=== PATIENT | female | born 1930 | race Caucasian/White ===

== ENCOUNTER 2020-06-21 17:09 | Inpatient (IN) | payer MEDICARE, BC ==
[2020-06-21] MEDS ORDERED: Sodium Chloride 0.9% 10 ML Syringe FLUSH PRN ×2 (17:22→20:59)
--- NOTE | 2020-06-21 18:07 | EDM.PDOC ---
ED HPI GENERAL MEDICAL PROBLEM - General Chief Complaint: Respiratory Problem Stated Complaint: [facility] Time Seen by Provider: 06/21/20 17:21 Source of Information: Reports: Patient, RN Notes Reviewed - History of Present Illness INITIAL COMMENTS - FREE TEXT/NARRATIVE: Patient is an 89-year-old female who presents to the ED via [facility] for the evaluation of her shortness of breath. Patient resides at [facility] which is an assisted living. She notes that this has been going on for the past few days. She states she feels "crackles in her lungs ". Her temperature at [facility] was 100.6 however she is afebrile when she gets to the ER at 98.6 F. Patient's pulse is mildly elevated at 115, respiratory rate is elevated at 24, blood pressure at 150/74, O2 sats were 84% on room air. She does not wear oxygen at baseline. She did receive the COVID-19 vaccine 2 weeks ago, and notes that she gets tested for COVID-19 3 times a week and the last test was this morning, which was a state send out test. She is not having any chest pain, she is not complaining of any cough. She is not having any nausea/vomiting/diarrhea, or any other urinary issues like frequency or urgency. - Related Data Allergies Allergy/AdvReac Type Severity Reaction Status Date / Time atorvastatin calcium Allergy Muscle Verified 06/21/20 17:18 [From Lipitor] Aches ibuprofen Allergy Edema Verified 06/21/20 17:18 [From DayQuil Sinus Pressure/Pain] pseudoephedrine HCl Allergy Edema Verified 06/21/20 17:18 [From DayQuil Sinus Pressure/Pain] Home Meds: Home Meds Acetaminophen [Tylenol Extra Strength] 1,000 mg PO Q6HR PRN 04/01/15 [History] Aspirin 162 mg PO BID 04/01/15 [History] Calcium Carb/Vitamin D3/Vit K1 [Calcium + D Soft Chewable Tab] 600 mg PO DAILY 04/01/15 [History] Loratadine [Claritin] 10 mg PO DAILY 04/01/15 [History] Omeprazole [Prilosec] 20 mg PO DAILY 04/01/15 [History] Rosuvastatin [Crestor] 5 mg PO DAILY 04/01/15 [History] Ubidecarenone [Co Q-10] 50 mg PO DAILY 04/01/15 [History] carvediloL [Coreg] 12.5 mg PO BID 04/01/15 [History] Flunisolide 2 spray ELI Q12H 08/25/15 [History] Ascorbic Acid [Vitamin C] 500 mg PO DAILY 03/26/18 [History] Furosemide 40 mg PO DAILY 03/26/18 [History] Lactobacillus Acidophilus [Probiotic] 1 cap PO DAILY 03/26/18 [History] Multivitamin [Poly-Vitamin] 1 tab PO DAILY 03/26/18 [History] Sertraline [Zoloft] 75 mg PO DAILY 03/26/18 [History] allopurinoL [Zyloprim] 300 mg PO DAILY 03/26/18 [History] Calcium Carbonate [Tums] 1,000 mg PO ASDIRECTED PRN 06/21/20 [History] Cyanocobalamin (Vitamin B-12) [Vitamin B-12] 100 mcg PO DAILY 06/21/20 [History] Lutein/Minerals/Vit A,C & E [Ocuvite] 1 tab PO DAILY 06/21/20 [History] Neomycin/Bacitracin/Polymyxinb [Antibiotic Ointment] 1 applic TOP ASDIRECTED PRN 06/21/20 [History] Past Medical History HEENT History: Reports: Other (See Below) Other HEENT History: glasses, hearing aids, dentures. seasonal allergies, R eye retinal hemorrhage Cardiovascular History: Reports: Heart Failure, High Cholesterol, [place], Pacemaker, Other (See Below) Other Cardiovascular History: arterioslerotic cardiovascular disease, CAD, heart failure with diastolic dysfuntion, PVD, Pacemaker with AICD, Cardiac Cath 2007, CABG 2008, Aortic dissection repair 2008 Respiratory History: Reports: Other (See Below) Other Respiratory History: history of L pleural effusion Gastrointestinal History: Reports: GERD Genitourinary History: Reports: Other (See Below) Other Genitourinary History: chronic kidney disease stage II Musculoskeletal History: Reports: Other (See Below) Other Musculoskeletal History: degenerative joint disease, carpal tunnel syndrome Neurological History: Reports: Other (See Below) Other Neuro History: romero's palsy Dermatologic History: Reports: Other (See Below) Other Dermatologic History: hives, eczema - Past Surgical History Musculoskeletal Surgical History: Reports: Other (See Below) Other Musculoskeletal Surgeries/Procedures:: back surgery L3, L4 2007 Social & Family History - Family History Cardiac: Reports: [place] Musculoskeletal: Reports: Arthritis - Tobacco Use Tobacco Use Status *Q: Former Tobacco User Used Tobacco, but Quit: Yes Month/Year Tobacco Last Used: many years ago - Recreational Drug Use Recreational Drug Use: No ED ROS GENERAL - Review of Systems Review Of Systems: Comprehensive ROS is negative, except as noted in HPI. ED EXAM, GENERAL - Physical Exam Exam: See Below Exam Limited By: No Limitations General Appearance: Alert, WD/WN, No Apparent Distress (increased respiratory rate, but not in distress) Respiratory/Chest: No Respiratory Distress, Normal Breath Sounds, Decreased Breath Sounds (bilaterally) Cardiovascular: Normal Peripheral Pulses, Regular Rate, Rhythm, No Edema Extremities: Normal Inspection, Normal Capillary Refill Neurological: Alert, Oriented, Normal Cognition, No Motor/Sensory Deficits Psychiatric: Normal Affect, Normal Mood Skin Exam: Warm, Dry, Intact, Normal Color, No Rash #1 Interpretation EKG Date: 06/21/20 Time: 17:36 Rhythm: NSR Rate (Beats/Min): 108 [place]: LAD-Left [place] Deviation P-Wave: Present QRS: Normal ST-T: Normal QT: Normal Comparison: NA - No Prior EKG EKG Interpretation Comments: No ST abnormalities reviewed by myself and Dr. Fitch Course - Vital Signs Last Recorded V/S: Last Vital Signs Temp 98.6 F 06/21/20 17:13 Pulse 115 H 06/21/20 17:13 Resp 24 H 06/21/20 17:13 BP 150/79 H 06/21/20 17:13 Pulse Ox 84 L 06/21/20 17:13 - Orders/Labs/Meds Orders: Active Orders 24 hr Category Date Time Status EKG Documentation Completion [RC] STAT Care 06/21/20 17:21 Active Oxygen Therapy, ED [RC] ASDIRECTED Care 06/21/20 19:22 Ordered Peripheral IV Care [RC] . DIRECTED Care 06/21/20 17:22 Active CULTURE BLOOD [BC] Stat Lab 06/21/20 19:03 Ordered CULTURE BLOOD [BC] Stat Lab 06/21/20 19:03 Ordered CULTURE URINE [RM] Routine Lab 06/21/20 19:07 Ordered Sodium Chloride 0.9% [Saline Flush] Med 06/21/20 17:22 Active 10 ml FLUSH ASDIRECTED PRN cefTRIAXone [Rocephin] 2 gm Med 06/21/20 19:22 Ordered Sodium Chloride 0.9% [Normal Saline] 100 ml IV ONETIME Blood Culture x2 Reflex Set [OM.PC] Stat Oth 06/21/20 19:03 Ordered Peripheral IV Insertion Adult [OM.PC] Routine Oth 06/21/20 17:22 Ordered Medication Orders Sodium Chloride (Saline Flush) 10 ml FLUSH ASDIRECTED PRN PRN Reason: Keep Vein Open Last Admin: 06/21/20 18:11 Dose: 10 ml Documented by: DEONTE Labs: Laboratory Tests 06/21/20 06/21/20 06/21/20 Range/Units 17:26 17:40 17:40 WBC 14.38 H (3.98-10.04) K/mm3 RBC 3.46 L (3.98-5.22) M/mm3 Hgb 10.9 L D (11.2-15.7) gm/dl Hct 34.3 (34.1-44.9) % MCV 99.1 H (79.4-94.8) fl MCH 31.5 (25.6-32.2) pg MCHC 31.8 L (32.2-35.5) g/dl RDW Std Deviation 46.1 (36.4-46.3) fL Plt Count 250 (182-369) K/mm3 MPV 9.5 (9.4-12.3) fl Neutrophils % (Manual) 81 H (40-60) % Band Neutrophils % 0 (0-10) % Lymphocytes % (Manual) 8 L (20-40) % Atypical Lymphs % 0 % Monocytes % (Manual) 7 (2-10) % Eosinophils % (Manual) 4 (0.7-5.8) % Basophils % (Manual) 0 L (0.1-1.2) Platelet Estimate Adequate Anisocytosis 1+ slight RBC Morph Comment Abnormal PT (9.7-12.0) SECONDS INR APTT (21.7-31.4) SECONDS D-Dimer, Quantitative (0.19-0.50) mg/L Puncture Site ABG pH (7.35-7.45) ABG pCO2 (35.0-45.0) mmHg ABG pO2 (80.0-100.0) mmHg ABG HCO3 (22.0-26.0) meq/L ABG O2 Saturation (96.0-97.0) % ABG Base Excess (-2-2.0) Hal Test A-a Gradient mmHg O2 Delivery Device FiO2 (21.00-100.00) % Sodium (136-145) mEq/L Potassium (3.5-5.1) mEq/L Chloride (98-107) mEq/L Carbon Dioxide (21-32) mEq/L Anion Gap (5-15) BUN (7-18) mg/dL Creatinine (0.55-1.02) mg/dL Est Cr Clr Drug Dosing mL/min Estimated GFR (MDRD) (>60) mL/min BUN/Creatinine Ratio (14-18) Glucose (83-115) mg/dL Lactic Acid (0.4-2.0) mmol/L Calcium (8.5-10.1) mg/dL Magnesium (1.8-2.4) mg/dl Ferritin (8-252) ng/ml Total Bilirubin (0.2-1.0) mg/dL AST (15-37) U/L ALT (14-59) U/L Alkaline Phosphatase (46-116) U/L Lactate Dehydrogenase (81-234) U/L Troponin I (0.00-0.056) ng/mL C-Reactive Protein 22.8 H* (<1.0) mg/dL NT-Pro-B Natriuret Pep (0-450) pg/mL Total Protein (6.4-8.2) g/dl Albumin (3.4-5.0) g/dl Globulin gm/dL Albumin/Globulin Ratio (1-2) Urine Color (Yellow) Urine Appearance (Clear) Urine pH (5.0-8.0) Ur Specific Ambler (1.005-1.030) Urine Protein (Negative) Urine Glucose (UA) (Negative) Urine Ketones (Negative) Urine Occult Blood (Negative) Urine Nitrite (Negative) Urine Bilirubin (Negative) Urine Urobilinogen (0.2-1.0) Ur Leukocyte Esterase (Negative) Urine RBC (0-5) /hpf Urine WBC (0-5) /hpf Ur Squamous Epith Cells (0-5) /hpf Amorphous Sediment (NOT SEEN) /hpf Urine Bacteria (FEW) /hpf Urine Mucus (FEW) /hpf Influenza Type A RNA Negative (NEGATIVE) Influenza Type B RNA Negative (NEGATIVE) SARS-CoV-2 RNA (JEAN-PIERRE) Negative (NEGATIVE) 06/21/20 06/21/20 06/21/20 Range/Units 17:40 17:40 17:40 WBC (3.98-10.04) K/mm3 RBC (3.98-5.22) M/mm3 Hgb (11.2-15.7) gm/dl Hct (34.1-44.9) % MCV (79.4-94.8) fl MCH (25.6-32.2) pg MCHC (32.2-35.5) g/dl RDW Std Deviation (36.4-46.3) fL Plt Count (182-369) K/mm3 MPV (9.4-12.3) fl Neutrophils % (Manual) (40-60) % Band Neutrophils % (0-10) % Lymphocytes % (Manual) (20-40) % Atypical Lymphs % % Monocytes % (Manual) (2-10) % Eosinophils % (Manual) (0.7-5.8) % Basophils % (Manual) (0.1-1.2) Platelet Estimate Anisocytosis RBC Morph Comment PT 11.0 (9.7-12.0) SECONDS INR 1.03 APTT 29.9 (21.7-31.4) SECONDS D-Dimer, Quantitative 1.25 H (0.19-0.50) mg/L Puncture Site ABG pH (7.35-7.45) ABG pCO2 (35.0-45.0) mmHg ABG pO2 (80.0-100.0) mmHg ABG HCO3 (22.0-26.0) meq/L ABG O2 Saturation (96.0-97.0) % ABG Base Excess (-2-2.0) Hal Test A-a Gradient mmHg O2 Delivery Device FiO2 (21.00-100.00) % Sodium 140 (136-145) mEq/L Potassium 4.5 (3.5-5.1) mEq/L Chloride 104 (98-107) mEq/L Carbon Dioxide 21 (21-32) mEq/L Anion Gap 19.5 H (5-15) BUN 28 H (7-18) mg/dL Creatinine 1.5 H (0.55-1.02) mg/dL Est Cr Clr Drug Dosing 20.90 mL/min Estimated GFR (MDRD) 33 (>60) mL/min BUN/Creatinine Ratio 18.7 H (14-18) Glucose 117 H (83-115) mg/dL Lactic Acid (0.4-2.0) mmol/L Calcium 9.1 (8.5-10.1) mg/dL Magnesium 2.2 (1.8-2.4) mg/dl Ferritin (8-252) ng/ml Total Bilirubin 0.5 (0.2-1.0) mg/dL AST 20 (15-37) U/L ALT 21 (14-59) U/L Alkaline Phosphatase 121 H (46-116) U/L Lactate Dehydrogenase 180 (81-234) U/L Troponin I 0.044 (0.00-0.056) ng/mL C-Reactive Protein (<1.0) mg/dL NT-Pro-B Natriuret Pep 6980 H (0-450) pg/mL Total Protein 7.3 (6.4-8.2) g/dl Albumin 3.2 L (3.4-5.0) g/dl Globulin 4.1 gm/dL Albumin/Globulin Ratio 0.8 L (1-2) Urine Color (Yellow) Urine Appearance (Clear) Urine pH (5.0-8.0) Ur Specific Ambler (1.005-1.030) Urine Protein (Negative) Urine Glucose (UA) (Negative) Urine Ketones (Negative) Urine Occult Blood (Negative) Urine Nitrite (Negative) Urine Bilirubin (Negative) Urine Urobilinogen (0.2-1.0) Ur Leukocyte Esterase (Negative) Urine RBC (0-5) /hpf Urine WBC (0-5) /hpf Ur Squamous Epith Cells (0-5) /hpf Amorphous Sediment (NOT SEEN) /hpf Urine Bacteria (FEW) /hpf Urine Mucus (FEW) /hpf Influenza Type A RNA (NEGATIVE) Influenza Type B RNA (NEGATIVE) SARS-CoV-2 RNA (JEAN-PIERRE) (NEGATIVE) 06/21/20 06/21/20 06/21/20 Range/Units 17:40 17:40 17:51 WBC (3.98-10.04) K/mm3 RBC (3.98-5.22) M/mm3 Hgb (11.2-15.7) gm/dl Hct (34.1-44.9) % MCV (79.4-94.8) fl MCH (25.6-32.2) pg MCHC (32.2-35.5) g/dl RDW Std Deviation (36.4-46.3) fL Plt Count (182-369) K/mm3 MPV (9.4-12.3) fl Neutrophils % (Manual) (40-60) % Band Neutrophils % (0-10) % Lymphocytes % (Manual) (20-40) % Atypical Lymphs % % Monocytes % (Manual) (2-10) % Eosinophils % (Manual) (0.7-5.8) % Basophils % (Manual) (0.1-1.2) Platelet Estimate Anisocytosis RBC Morph Comment PT (9.7-12.0) SECONDS INR APTT (21.7-31.4) SECONDS D-Dimer, Quantitative (0.19-0.50) mg/L Puncture Site Lt radial ABG pH 7.47 H (7.35-7.45) ABG pCO2 24.0 L (35.0-45.0) mmHg ABG pO2 47.0 L (80.0-100.0) mmHg ABG HCO3 17.3 L (22.0-26.0) meq/L ABG O2 Saturation 84.8 L (96.0-97.0) % ABG Base Excess -4.7 L (-2-2.0) Hal Test Positive A-a Gradient 73 mmHg O2 Delivery Device Room air FiO2 21.00 (21.00-100.00) % Sodium (136-145) mEq/L Potassium (3.5-5.1) mEq/L Chloride (98-107) mEq/L Carbon Dioxide (21-32) mEq/L Anion Gap (5-15) BUN (7-18) mg/dL Creatinine (0.55-1.02) mg/dL Est Cr Clr Drug Dosing mL/min Estimated GFR (MDRD) (>60) mL/min BUN/Creatinine Ratio (14-18) Glucose (83-115) mg/dL Lactic Acid 1.0 (0.4-2.0) mmol/L Calcium (8.5-10.1) mg/dL Magnesium (1.8-2.4) mg/dl Ferritin 260 H (8-252) ng/ml Total Bilirubin (0.2-1.0) mg/dL AST (15-37) U/L ALT (14-59) U/L Alkaline Phosphatase (46-116) U/L Lactate Dehydrogenase (81-234) U/L Troponin I (0.00-0.056) ng/mL C-Reactive Protein (<1.0) mg/dL NT-Pro-B Natriuret Pep (0-450) pg/mL Total Protein (6.4-8.2) g/dl Albumin (3.4-5.0) g/dl Globulin gm/dL Albumin/Globulin Ratio (1-2) Urine Color (Yellow) Urine Appearance (Clear) Urine pH (5.0-8.0) Ur Specific Ambler (1.005-1.030) Urine Protein (Negative) Urine Glucose (UA) (Negative) Urine Ketones (Negative) Urine Occult Blood (Negative) Urine Nitrite (Negative) Urine Bilirubin (Negative) Urine Urobilinogen (0.2-1.0) Ur Leukocyte Esterase (Negative) Urine RBC (0-5) /hpf Urine WBC (0-5) /hpf Ur Squamous Epith Cells (0-5) /hpf Amorphous Sediment (NOT SEEN) /hpf Urine Bacteria (FEW) /hpf Urine Mucus (FEW) /hpf Influenza Type A RNA (NEGATIVE) Influenza Type B RNA (NEGATIVE) SARS-CoV-2 RNA (JEAN-PIERRE) (NEGATIVE) 06/21/20 Range/Units 17:55 WBC (3.98-10.04) K/mm3 RBC (3.98-5.22) M/mm3 Hgb (11.2-15.7) gm/dl Hct (34.1-44.9) % MCV (79.4-94.8) fl MCH (25.6-32.2) pg MCHC (32.2-35.5) g/dl RDW Std Deviation (36.4-46.3) fL Plt Count (182-369) K/mm3 MPV (9.4-12.3) fl Neutrophils % (Manual) (40-60) % Band Neutrophils % (0-10) % Lymphocytes % (Manual) (20-40) % Atypical Lymphs % % Monocytes % (Manual) (2-10) % Eosinophils % (Manual) (0.7-5.8) % Basophils % (Manual) (0.1-1.2) Platelet Estimate Anisocytosis RBC Morph Comment PT (9.7-12.0) SECONDS INR APTT (21.7-31.4) SECONDS D-Dimer, Quantitative (0.19-0.50) mg/L Puncture Site ABG pH (7.35-7.45) ABG pCO2 (35.0-45.0) mmHg ABG pO2 (80.0-100.0) mmHg ABG HCO3 (22.0-26.0) meq/L ABG O2 Saturation (96.0-97.0) % ABG Base Excess (-2-2.0) Hal Test A-a Gradient mmHg O2 Delivery Device FiO2 (21.00-100.00) % Sodium (136-145) mEq/L Potassium (3.5-5.1) mEq/L Chloride (98-107) mEq/L Carbon Dioxide (21-32) mEq/L Anion Gap (5-15) BUN (7-18) mg/dL Creatinine (0.55-1.02) mg/dL Est Cr Clr Drug Dosing mL/min Estimated GFR (MDRD) (>60) mL/min BUN/Creatinine Ratio (14-18) Glucose (83-115) mg/dL Lactic Acid (0.4-2.0) mmol/L Calcium (8.5-10.1) mg/dL Magnesium (1.8-2.4) mg/dl Ferritin (8-252) ng/ml Total Bilirubin (0.2-1.0) mg/dL AST (15-37) U/L ALT (14-59) U/L Alkaline Phosphatase (46-116) U/L Lactate Dehydrogenase (81-234) U/L Troponin I (0.00-0.056) ng/mL C-Reactive Protein (<1.0) mg/dL NT-Pro-B Natriuret Pep (0-450) pg/mL Total Protein (6.4-8.2) g/dl Albumin (3.4-5.0) g/dl Globulin gm/dL Albumin/Globulin Ratio (1-2) Urine Color Yellow (Yellow) Urine Appearance Slt cloudy H (Clear) Urine pH 6.0 (5.0-8.0) Ur Specific Ambler 1.020 (1.005-1.030) Urine Protein 2+ H (Negative) Urine Glucose (UA) Negative (Negative) Urine Ketones Trace H (Negative) Urine Occult Blood 1+ H (Negative) Urine Nitrite Positive H (Negative) Urine Bilirubin Negative (Negative) Urine Urobilinogen 0.2 (0.2-1.0) Ur Leukocyte Esterase 2+ H (Negative) Urine RBC 10-20 H (0-5) /hpf Urine WBC 50-75 H (0-5) /hpf Ur Squamous Epith Cells 5-10 H (0-5) /hpf Amorphous Sediment Rare H (NOT SEEN) /hpf Urine Bacteria Many H (FEW) /hpf Urine Mucus Not seen (FEW) /hpf Influenza Type A RNA (NEGATIVE) Influenza Type B RNA (NEGATIVE) SARS-CoV-2 RNA (JEAN-PIERRE) (NEGATIVE) Meds: Medications Generic Name Dose Route Start Last Admin Trade Name Freq PRN Reason Stop Dose Admin Sodium Chloride 10 ml 06/21/20 17:22 06/21/20 18:11 Saline Flush FLUSH 10 ml ASDIRECTED PRN Administration Keep Vein Open Discontinued Medications Generic Name Dose Route Start Last Admin Trade Name Freq PRN Reason Stop Dose Admin Furosemide 40 mg 06/21/20 19:08 Lasix IVPUSH 06/21/20 19:09 NOW ONE - Re-Assessments/Exams Free Text/Narrative Re-Assessment/Exam: 06/21/20 18:25 Patient presents to the ED for her ongoing shortness of breath. Multitude of labs will be done, along with chest x-ray, EKG and Covid swab for evaluation. Chest x-ray was done and read as possible appearance of CHF with interstitial edema. 06/21/20 19:20 The patient's laboratory evaluation is done, white cell count is elevated at 14.3, with 81% neutrophils and no bands. D-dimer is elevated at 1.25, which is likely due to her acute exacerbation of CHF and her ongoing infection. Her room air PO2 was 47, but her pH was 7.47 and she is not in any sort of respiratory failure. The patient's anion gap elevated at 19.5, creatinine 1.5 and GFR low at 33. Ferritin elevated at 260, troponin is within normal limits but shows 0.044. LDH within normal limits at 180. CRP elevated at 22.8, BNP is markedly elevated at 6980. Patient's Covid screen and influenza screen were negative. The patient's urine is also grossly positive for UTI. Laboratory is in there to get blood cultures, we will give 2 g Rocephin after this, and 40 mg Lasix for ongoing management and admit to the hospital, Dr. Mcarthur did graciously accept this patient for admission. Departure - Departure Time of Disposition: 19:21 Disposition: Admitted As Inpatient 68 Condition: Fair Clinical Impression: Acute CHF (congestive heart failure) Qualifiers: Heart failure type: unspecified Qualified Code(s): I50.9 - Heart failure, unspecified UTI (urinary tract infection) Qualifiers: Urinary tract infection type: acute cystitis Hematuria presence: with hematuria Qualified Code(s): N30.01 - Acute cystitis with hematuria - Discharge Information *PRESCRIPTION DRUG MONITORING PROGRAM REVIEWED*: No *COPY OF PRESCRIPTION DRUG MONITORING REPORT IN PATIENT GERMAINE: No Forms: ED Department Discharge Sepsis Event Note (ED) - Evaluation Sepsis Screening Result: No Definite Risk - Focused Exam Vital Signs: Vital Signs Temp Pulse Resp BP Pulse Ox 06/21/20 17:13 98.6 F 115 H 24 H 150/79 H 84 L - My Orders Last 24 Hours: My Active Orders 06/21/20 17:21 EKG Documentation Completion [RC] STAT 06/21/20 17:22 Peripheral IV Care [RC] . DIRECTED Sodium Chloride 0.9% [Saline Flush] 10 ml FLUSH ASDIRECTED PRN Peripheral IV Insertion Adult [OM.PC] Routine 06/21/20 19:03 CULTURE BLOOD [BC] Stat CULTURE BLOOD [BC] Stat Blood Culture x2 Reflex Set [OM.PC] Stat 06/21/20 19:07 CULTURE URINE [RM] Routine 06/21/20 19:22 Oxygen Therapy, ED [RC] ASDIRECTED cefTRIAXone [Rocephin] 2 gm Sodium Chloride 0.9% [Normal Saline] 100 ml IV ONETIME - Assessment/Plan Last 24 Hours: My Active Orders 06/21/20 17:21 EKG Documentation Completion [RC] STAT 06/21/20 17:22 Peripheral IV Care [RC] . DIRECTED Sodium Chloride 0.9% [Saline Flush] 10 ml FLUSH ASDIRECTED PRN Peripheral IV Insertion Adult [OM.PC] Routine 06/21/20 19:03 CULTURE BLOOD [BC] Stat CULTURE BLOOD [BC] Stat Blood Culture x2 Reflex Set [OM.PC] Stat 06/21/20 19:07 CULTURE URINE [RM] Routine 06/21/20 19:22 Oxygen Therapy, ED [RC] ASDIRECTED cefTRIAXone [Rocephin] 2 gm Sodium Chloride 0.9% [Normal Saline] 100 ml IV ONETIME
[2020-06-21 18:13] LABS: CORONAVIRUS COVID-19 NAA NEGATIVE (NEGATIVE)
--- NOTE | 2020-06-21 18:17 | CR ---
Chest: Portable view of the chest was obtained. Comparison: Previous chest x-ray of 12/08/08. Heart is enlarged. Upper mediastinum is normal. Sternotomy is noted. AICD is present. Diffuse increased pulmonary vasculature is seen with mild José Miguel B-lines most likely representing interstitial edema. Impression: 1. Findings at the current time have the appearance of CHF with interstitial edema. Diagnostic code #3
[2020-06-21] MEDS ORDERED: Furosemide 40 MG/4 ML VIAL IVPUSH ONE (19:08)
[2020-06-21] MEDS ORDERED: cefTRIAXone 2 GM in Sodium Chloride 0.9% 100 ML IV ONE (19:22)
--- NOTE | 2020-06-21 19:56 | PCM.HP.2 ---
H&P History of Present Illness - General Date of Service: 06/21/20 Admit Problem/Dx: Admission Diagnosis/Problem Admission Diagnosis/Problem CHF, Congestive heart failure Source of Information: Patient, Old Records, Provider, RN Notes Reviewed History Limitations: Reports: No Limitations - History of Present Illness Initial Comments - Free Text/Narative: This is an 89 yo elderly white female with past medical hx/o past medical hx/o Impaired Vision/Hearing, PRADEEP, HTN, HLD, HF with Preserved EF, Hx/o NE, S/p Pacemaker Placement, CAD, GERD, CKD Stage 2-3, DJD, CTS, OA, Apodaca's Palsy, Eczema, Former Smoker and Depression who comes to us from [facility] from evaluation of 3-day hx/o shortness of breath. Her chief complaint is associated with subjective fever of 100.6F. She carries no hx/o COVID-19 infection. She states she gets tested 3 times a week. Her last test was this morning but it was a send out. She did receive her Moderna shot 1, 2 weeks ago. She denies having cough or heart palpitations. No GI complaints. She reports frequent urination. Her initial work up shows a CBC remarkable for WBC of 14.83, Hgb of 10.9, MCV of 99.1, MCHC of 31.8, and Neutrophils of 81%. Her coagulation study is significant for D-dimer of 1.25. Her ABG shows a pH of 7.47, pCO2 of 24, pO2 of 47, HCO3 of 17.3 and O2 sat of 84% on RA. Her chemistry is significant for AG of 19.5, BUN of 28, Cr of 1.5, BS of 117, Ferritin of 260, Alk Phos of 121, CRP of 22.8, proBNP of 6980, and Albumin of 3.2. Her UA is suggestive of UTI. Her rapid covid and influenza tests are both negative. Her chest x-ray shows interstitial edema. Patient is coming in for further treatment of acute congestive heart failure and UTI. Headache Pain Score (Numeric/FACES): 5 - Related Data Allergies/Adverse Reactions: Allergies Allergy/AdvReac Type Severity Reaction Status Date / Time ibuprofen Allergy Edema Verified 06/21/20 17:18 [From DayQuil Sinus Pressure/Pain] pseudoephedrine HCl Allergy Edema Verified 06/21/20 17:18 [From DayQuil Sinus Pressure/Pain] atorvastatin calcium AdvReac Muscle Verified 06/22/20 16:02 [From Lipitor] Aches Home Medications: Home Meds Acetaminophen [Tylenol Extra Strength] 1,000 mg PO Q6HR PRN 04/01/15 [History] Aspirin 81 mg PO BID 04/01/15 [History] Calcium Carb/Vitamin D3/Vit K1 [Calcium + D Soft Chewable Tab] 600 mg PO DAILY 04/01/15 [History] Loratadine [Claritin] 10 mg PO DAILY 04/01/15 [History] Omeprazole [Prilosec] 20 mg PO DAILY PRN 04/01/15 [History] Rosuvastatin [Crestor] 5 mg PO DAILY 04/01/15 [History] Ubidecarenone [Co Q-10] 50 mg PO DAILY 04/01/15 [History] carvediloL [Coreg] 12.5 mg PO BID 04/01/15 [History] Flunisolide 2 spray ELI Q12H 08/25/15 [History] Ascorbic Acid [Vitamin C] 500 mg PO DAILY 03/26/18 [History] Furosemide 40 mg PO DAILY 03/26/18 [History] Lactobacillus Acidophilus [Probiotic] 1 cap PO DAILY 03/26/18 [History] Multivitamin [Poly-Vitamin] 1 tab PO DAILY 03/26/18 [History] Sertraline [Zoloft] 75 mg PO DAILY 03/26/18 [History] allopurinoL [Zyloprim] 300 mg PO DAILY 03/26/18 [History] Calcium Carbonate [Tums] 1,000 mg PO ASDIRECTED PRN 06/21/20 [History] Cyanocobalamin (Vitamin B-12) [Vitamin B-12] 100 mcg PO DAILY 06/21/20 [History] Lutein/Minerals/Vit A,C & E [Ocuvite] 1 tab PO DAILY 06/21/20 [History] Neomycin/Bacitracin/Polymyxinb [Antibiotic Ointment] 1 applic TOP ASDIRECTED PRN 06/21/20 [History] Past Medical History HEENT History: Reports: Other (See Below) Other HEENT History: glasses, hearing aids, dentures. seasonal allergies, R eye retinal hemorrhage Cardiovascular History: Reports: Heart Failure, High Cholesterol, NE, Pacemaker, Other (See Below) Other Cardiovascular History: arterioslerotic cardiovascular disease, CAD, heart failure with diastolic dysfuntion, PVD, Pacemaker with AICD, Cardiac Cath 2007, CABG 2008, Aortic dissection repair 2008 Respiratory History: Reports: Other (See Below) Other Respiratory History: history of L pleural effusion Gastrointestinal History: Reports: GERD Genitourinary History: Reports: Other (See Below) Other Genitourinary History: chronic kidney disease stage II Musculoskeletal History: Reports: Other (See Below) Other Musculoskeletal History: degenerative joint disease, carpal tunnel syndrome Neurological History: Reports: Other (See Below) Other Neuro History: apodaca's palsy Dermatologic History: Reports: Other (See Below) Other Dermatologic History: hives, eczema - Past Surgical History Musculoskeletal Surgical History: Reports: Other (See Below) Other Musculoskeletal Surgeries/Procedures:: back surgery L3, L4 2007 Social & Family History - Family History Cardiac: Reports: NE Musculoskeletal: Reports: Arthritis - Tobacco Use Tobacco Use Status *Q: Former Tobacco User Used Tobacco, but Quit: Yes Month/Year Tobacco Last Used: many years ago - Recreational Drug Use Recreational Drug Use: No H&P Review of Systems - Review of Systems: Review Of Systems: See Below General: Denies: Fever, Chills, Fatigue HEENT: Reports: Other (left sided facial droop). Denies: Contact Lenses, Sore Throat Pulmonary: Reports: Shortness of Breath. Denies: Wheezing, Cough Cardiovascular: Denies: Chest Pain, Dyspnea on Exertion, Edema, Lightheadedness, Claudication Gastrointestinal: Denies: Abdominal Pain, Nausea, Vomiting Genitourinary: Reports: Frequency, Urgency, Other (nocturia) Musculoskeletal: Denies: Joint Pain Skin: Denies: Cyanosis, Bruising, Pruritis, Rash Psychiatric: Denies: Depression, Anxiety Neurological: Denies: Confusion, Syncope, Difficulty Walking, Weakness, Gait Disturbance Hematologic/Lymphatic: Reports: No Symptoms Immunologic: Reports: Environmental Allergy, Seasonal Allergy Exam - Exam Exam: See Below - Vital Signs Vital Signs: Last Vital Signs Temp 37.0 C 06/21/20 17:13 Pulse 115 H 06/21/20 17:13 Resp 24 H 06/21/20 17:13 BP 150/79 H 06/21/20 17:13 Pulse Ox 84 L 06/21/20 17:13 Weight: 61.235 kg - Exam Quality Assessment: Supplemental Oxygen General: Alert, Oriented, Cooperative HEENT: Conjunctiva Clear, EACs Clear, EOMI, Hearing Intact, Mucosa Moist & [place], Nares Patent, Normal Nasal Septum, Posterior Pharynx Clear, Pupils Equal, Pupils Reactive Neck: Supple, Trachea Midline, Full Range of Motion. No: JVD Lungs: Normal Respiratory Effort, Crackles Cardiovascular: Regular Rate, Regular Rhythm, Other (pacemaker on left anterior chest) GI/Abdominal Exam: Normal Bowel Sounds, Soft, Non-Tender, No Organomegaly, No Distention, No Abnormal Bruit (Female) Exam: Deferred Rectal (Female) Exam: Deferred Back Exam: Normal Inspection, Decreased Range of Motion Extremities: Normal Inspection, Normal Range of Motion, Non-Tender, No Pedal Edema, Normal Capillary Refill Peripheral Pulses: 2+: Dorsalis Pedis (L), Dorsalis Pedis (R) Skin: Warm, Dry, Intact Neuro Extensive - Mental Status: Oriented x3, Normal Cognition, Memory Intact Neuro Extensive - Motor, Sensory, Reflexes: CN II-XII Intact, Normal Gait Psychiatric: Alert, Normal Affect, Normal Mood - Patient Data Lab Results Last 24 hrs: Laboratory Results - last 24 hr 06/21/20 06/21/20 06/21/20 Range/Units 17:26 17:40 17:40 WBC 14.38 H (3.98-10.04) K/mm3 RBC 3.46 L (3.98-5.22) M/mm3 Hgb 10.9 L D (11.2-15.7) gm/dl Hct 34.3 (34.1-44.9) % MCV 99.1 H (79.4-94.8) fl MCH 31.5 (25.6-32.2) pg MCHC 31.8 L (32.2-35.5) g/dl RDW Std Deviation 46.1 (36.4-46.3) fL Plt Count 250 (182-369) K/mm3 MPV 9.5 (9.4-12.3) fl Neutrophils % (Manual) 81 H (40-60) % Band Neutrophils % 0 (0-10) % Lymphocytes % (Manual) 8 L (20-40) % Atypical Lymphs % 0 % Monocytes % (Manual) 7 (2-10) % Eosinophils % (Manual) 4 (0.7-5.8) % Basophils % (Manual) 0 L (0.1-1.2) Platelet Estimate Adequate Anisocytosis 1+ slight RBC Morph Comment Abnormal PT (9.7-12.0) SECONDS INR APTT (21.7-31.4) SECONDS D-Dimer, Quantitative (0.19-0.50) mg/L Puncture Site ABG pH (7.35-7.45) ABG pCO2 (35.0-45.0) mmHg ABG pO2 (80.0-100.0) mmHg ABG HCO3 (22.0-26.0) meq/L ABG O2 Saturation (96.0-97.0) % ABG Base Excess (-2-2.0) Hal Test A-a Gradient mmHg O2 Delivery Device FiO2 (21.00-100.00) % Sodium (136-145) mEq/L Potassium (3.5-5.1) mEq/L Chloride (98-107) mEq/L Carbon Dioxide (21-32) mEq/L Anion Gap (5-15) BUN (7-18) mg/dL Creatinine (0.55-1.02) mg/dL Est Cr Clr Drug Dosing mL/min Estimated GFR (MDRD) (>60) mL/min BUN/Creatinine Ratio (14-18) Glucose (83-115) mg/dL Lactic Acid (0.4-2.0) mmol/L Calcium (8.5-10.1) mg/dL Magnesium (1.8-2.4) mg/dl Ferritin (8-252) ng/ml Total Bilirubin (0.2-1.0) mg/dL AST (15-37) U/L ALT (14-59) U/L Alkaline Phosphatase (46-116) U/L Lactate Dehydrogenase (81-234) U/L Troponin I (0.00-0.056) ng/mL C-Reactive Protein 22.8 H* (<1.0) mg/dL NT-Pro-B Natriuret Pep (0-450) pg/mL Total Protein (6.4-8.2) g/dl Albumin (3.4-5.0) g/dl Globulin gm/dL Albumin/Globulin Ratio (1-2) Urine Color (Yellow) Urine Appearance (Clear) Urine pH (5.0-8.0) Ur Specific [place] (1.005-1.030) Urine Protein (Negative) Urine Glucose (UA) (Negative) Urine Ketones (Negative) Urine Occult Blood (Negative) Urine Nitrite (Negative) Urine Bilirubin (Negative) Urine Urobilinogen (0.2-1.0) Ur Leukocyte Esterase (Negative) Urine RBC (0-5) /hpf Urine WBC (0-5) /hpf Ur Squamous Epith Cells (0-5) /hpf Amorphous Sediment (NOT SEEN) /hpf Urine Bacteria (FEW) /hpf Urine Mucus (FEW) /hpf Influenza Type A RNA Negative (NEGATIVE) Influenza Type B RNA Negative (NEGATIVE) SARS-CoV-2 RNA (JEAN-PIERRE) Negative (NEGATIVE) 06/21/20 06/21/20 06/21/20 Range/Units 17:40 17:40 17:40 WBC (3.98-10.04) K/mm3 RBC (3.98-5.22) M/mm3 Hgb (11.2-15.7) gm/dl Hct (34.1-44.9) % MCV (79.4-94.8) fl MCH (25.6-32.2) pg MCHC (32.2-35.5) g/dl RDW Std Deviation (36.4-46.3) fL Plt Count (182-369) K/mm3 MPV (9.4-12.3) fl Neutrophils % (Manual) (40-60) % Band Neutrophils % (0-10) % Lymphocytes % (Manual) (20-40) % Atypical Lymphs % % Monocytes % (Manual) (2-10) % Eosinophils % (Manual) (0.7-5.8) % Basophils % (Manual) (0.1-1.2) Platelet Estimate Anisocytosis RBC Morph Comment PT 11.0 (9.7-12.0) SECONDS INR 1.03 APTT 29.9 (21.7-31.4) SECONDS D-Dimer, Quantitative 1.25 H (0.19-0.50) mg/L Puncture Site ABG pH (7.35-7.45) ABG pCO2 (35.0-45.0) mmHg ABG pO2 (80.0-100.0) mmHg ABG HCO3 (22.0-26.0) meq/L ABG O2 Saturation (96.0-97.0) % ABG Base Excess (-2-2.0) Hal Test A-a Gradient mmHg O2 Delivery Device FiO2 (21.00-100.00) % Sodium 140 (136-145) mEq/L Potassium 4.5 (3.5-5.1) mEq/L Chloride 104 (98-107) mEq/L Carbon Dioxide 21 (21-32) mEq/L Anion Gap 19.5 H (5-15) BUN 28 H (7-18) mg/dL Creatinine 1.5 H (0.55-1.02) mg/dL Est Cr Clr Drug Dosing 20.90 mL/min Estimated GFR (MDRD) 33 (>60) mL/min BUN/Creatinine Ratio 18.7 H (14-18) Glucose 117 H (83-115) mg/dL Lactic Acid (0.4-2.0) mmol/L Calcium 9.1 (8.5-10.1) mg/dL Magnesium 2.2 (1.8-2.4) mg/dl Ferritin (8-252) ng/ml Total Bilirubin 0.5 (0.2-1.0) mg/dL AST 20 (15-37) U/L ALT 21 (14-59) U/L Alkaline Phosphatase 121 H (46-116) U/L Lactate Dehydrogenase 180 (81-234) U/L Troponin I 0.044 (0.00-0.056) ng/mL C-Reactive Protein (<1.0) mg/dL NT-Pro-B Natriuret Pep 6980 H (0-450) pg/mL Total Protein 7.3 (6.4-8.2) g/dl Albumin 3.2 L (3.4-5.0) g/dl Globulin 4.1 gm/dL Albumin/Globulin Ratio 0.8 L (1-2) Urine Color (Yellow) Urine Appearance (Clear) Urine pH (5.0-8.0) Ur Specific [place] (1.005-1.030) Urine Protein (Negative) Urine Glucose (UA) (Negative) Urine Ketones (Negative) Urine Occult Blood (Negative) Urine Nitrite (Negative) Urine Bilirubin (Negative) Urine Urobilinogen (0.2-1.0) Ur Leukocyte Esterase (Negative) Urine RBC (0-5) /hpf Urine WBC (0-5) /hpf Ur Squamous Epith Cells (0-5) /hpf Amorphous Sediment (NOT SEEN) /hpf Urine Bacteria (FEW) /hpf Urine Mucus (FEW) /hpf Influenza Type A RNA (NEGATIVE) Influenza Type B RNA (NEGATIVE) SARS-CoV-2 RNA (JEAN-PIERRE) (NEGATIVE) 06/21/20 06/21/20 06/21/20 Range/Units 17:40 17:40 17:51 WBC (3.98-10.04) K/mm3 RBC (3.98-5.22) M/mm3 Hgb (11.2-15.7) gm/dl Hct (34.1-44.9) % MCV (79.4-94.8) fl MCH (25.6-32.2) pg MCHC (32.2-35.5) g/dl RDW Std Deviation (36.4-46.3) fL Plt Count (182-369) K/mm3 MPV (9.4-12.3) fl Neutrophils % (Manual) (40-60) % Band Neutrophils % (0-10) % Lymphocytes % (Manual) (20-40) % Atypical Lymphs % % Monocytes % (Manual) (2-10) % Eosinophils % (Manual) (0.7-5.8) % Basophils % (Manual) (0.1-1.2) Platelet Estimate Anisocytosis RBC Morph Comment PT (9.7-12.0) SECONDS INR APTT (21.7-31.4) SECONDS D-Dimer, Quantitative (0.19-0.50) mg/L Puncture Site Lt radial ABG pH 7.47 H (7.35-7.45) ABG pCO2 24.0 L (35.0-45.0) mmHg ABG pO2 47.0 L (80.0-100.0) mmHg ABG HCO3 17.3 L (22.0-26.0) meq/L ABG O2 Saturation 84.8 L (96.0-97.0) % ABG Base Excess -4.7 L (-2-2.0) Hal Test Positive A-a Gradient 73 mmHg O2 Delivery Device Room air FiO2 21.00 (21.00-100.00) % Sodium (136-145) mEq/L Potassium (3.5-5.1) mEq/L Chloride (98-107) mEq/L Carbon Dioxide (21-32) mEq/L Anion Gap (5-15) BUN (7-18) mg/dL Creatinine (0.55-1.02) mg/dL Est Cr Clr Drug Dosing mL/min Estimated GFR (MDRD) (>60) mL/min BUN/Creatinine Ratio (14-18) Glucose (83-115) mg/dL Lactic Acid 1.0 (0.4-2.0) mmol/L Calcium (8.5-10.1) mg/dL Magnesium (1.8-2.4) mg/dl Ferritin 260 H (8-252) ng/ml Total Bilirubin (0.2-1.0) mg/dL AST (15-37) U/L ALT (14-59) U/L Alkaline Phosphatase (46-116) U/L Lactate Dehydrogenase (81-234) U/L Troponin I (0.00-0.056) ng/mL C-Reactive Protein (<1.0) mg/dL NT-Pro-B Natriuret Pep (0-450) pg/mL Total Protein (6.4-8.2) g/dl Albumin (3.4-5.0) g/dl Globulin gm/dL Albumin/Globulin Ratio (1-2) Urine Color (Yellow) Urine Appearance (Clear) Urine pH (5.0-8.0) Ur Specific [place] (1.005-1.030) Urine Protein (Negative) Urine Glucose (UA) (Negative) Urine Ketones (Negative) Urine Occult Blood (Negative) Urine Nitrite (Negative) Urine Bilirubin (Negative) Urine Urobilinogen (0.2-1.0) Ur Leukocyte Esterase (Negative) Urine RBC (0-5) /hpf Urine WBC (0-5) /hpf Ur Squamous Epith Cells (0-5) /hpf Amorphous Sediment (NOT SEEN) /hpf Urine Bacteria (FEW) /hpf Urine Mucus (FEW) /hpf Influenza Type A RNA (NEGATIVE) Influenza Type B RNA (NEGATIVE) SARS-CoV-2 RNA (JEAN-PIERRE) (NEGATIVE) 06/21/20 Range/Units 17:55 WBC (3.98-10.04) K/mm3 RBC (3.98-5.22) M/mm3 Hgb (11.2-15.7) gm/dl Hct (34.1-44.9) % MCV (79.4-94.8) fl MCH (25.6-32.2) pg MCHC (32.2-35.5) g/dl RDW Std Deviation (36.4-46.3) fL Plt Count (182-369) K/mm3 MPV (9.4-12.3) fl Neutrophils % (Manual) (40-60) % Band Neutrophils % (0-10) % Lymphocytes % (Manual) (20-40) % Atypical Lymphs % % Monocytes % (Manual) (2-10) % Eosinophils % (Manual) (0.7-5.8) % Basophils % (Manual) (0.1-1.2) Platelet Estimate Anisocytosis RBC Morph Comment PT (9.7-12.0) SECONDS INR APTT (21.7-31.4) SECONDS D-Dimer, Quantitative (0.19-0.50) mg/L Puncture Site ABG pH (7.35-7.45) ABG pCO2 (35.0-45.0) mmHg ABG pO2 (80.0-100.0) mmHg ABG HCO3 (22.0-26.0) meq/L ABG O2 Saturation (96.0-97.0) % ABG Base Excess (-2-2.0) Hal Test A-a Gradient mmHg O2 Delivery Device FiO2 (21.00-100.00) % Sodium (136-145) mEq/L Potassium (3.5-5.1) mEq/L Chloride (98-107) mEq/L Carbon Dioxide (21-32) mEq/L Anion Gap (5-15) BUN (7-18) mg/dL Creatinine (0.55-1.02) mg/dL Est Cr Clr Drug Dosing mL/min Estimated GFR (MDRD) (>60) mL/min BUN/Creatinine Ratio (14-18) Glucose (83-115) mg/dL Lactic Acid (0.4-2.0) mmol/L Calcium (8.5-10.1) mg/dL Magnesium (1.8-2.4) mg/dl Ferritin (8-252) ng/ml Total Bilirubin (0.2-1.0) mg/dL AST (15-37) U/L ALT (14-59) U/L Alkaline Phosphatase (46-116) U/L Lactate Dehydrogenase (81-234) U/L Troponin I (0.00-0.056) ng/mL C-Reactive Protein (<1.0) mg/dL NT-Pro-B Natriuret Pep (0-450) pg/mL Total Protein (6.4-8.2) g/dl Albumin (3.4-5.0) g/dl Globulin gm/dL Albumin/Globulin Ratio (1-2) Urine Color Yellow (Yellow) Urine Appearance Slt cloudy H (Clear) Urine pH 6.0 (5.0-8.0) Ur Specific [place] 1.020 (1.005-1.030) Urine Protein 2+ H (Negative) Urine Glucose (UA) Negative (Negative) Urine Ketones Trace H (Negative) Urine Occult Blood 1+ H (Negative) Urine Nitrite Positive H (Negative) Urine Bilirubin Negative (Negative) Urine Urobilinogen 0.2 (0.2-1.0) Ur Leukocyte Esterase 2+ H (Negative) Urine RBC 10-20 H (0-5) /hpf Urine WBC 50-75 H (0-5) /hpf Ur Squamous Epith Cells 5-10 H (0-5) /hpf Amorphous Sediment Rare H (NOT SEEN) /hpf Urine Bacteria Many H (FEW) /hpf Urine Mucus Not seen (FEW) /hpf Influenza Type A RNA (NEGATIVE) Influenza Type B RNA (NEGATIVE) SARS-CoV-2 RNA (JEAN-PIERRE) (NEGATIVE) Result Diagrams: 06/23/20 04:25 06/23/20 04:25 Sepsis Event Note - Evaluation Sepsis Screening Result: No Definite Risk - Focused Exam Vital Signs: Vital Signs Temp Pulse Resp BP Pulse Ox 06/21/20 17:13 37.0 C 115 H 24 H 150/79 H 84 L Problem List Initiated/Reviewed/Updated: Yes Orders Last 24hrs: Active Orders 24 hr Category Date Time Status Admission Status [Patient Status] [ADT] Routine ADT 06/21/20 19:23 Active EKG Documentation Completion [RC] STAT Care 06/21/20 17:21 Active Oxygen Therapy, ED [RC] ASDIRECTED Care 06/21/20 19:22 Active Peripheral IV Care [RC] . DIRECTED Care 06/21/20 17:22 Active CULTURE BLOOD [BC] Stat Lab 06/21/20 19:20 Received CULTURE BLOOD [BC] Stat Lab 06/21/20 19:25 Received CULTURE URINE [RM] Routine Lab 06/21/20 17:55 Received Sodium Chloride 0.9% [Saline Flush] Med 06/21/20 17:22 Active 10 ml FLUSH ASDIRECTED PRN Blood Culture x2 Reflex Set [OM.PC] Stat Oth 06/21/20 19:03 Ordered Peripheral IV Insertion Adult [OM.PC] Routine Oth 06/21/20 17:22 Ordered Medication Orders Sodium Chloride (Saline Flush) 10 ml FLUSH ASDIRECTED PRN PRN Reason: Keep Vein Open Last Admin: 06/21/20 18:11 Dose: 10 ml Documented by: DEONTE Assessment/Plan Comment:: This is an 89 yo elderly white female with past medical hx/o past medical hx/o Impaired Vision/Hearing, PRADEEP, HTN, HLD, HF with Preserved EF, Hx/o NE, S/p Pacemaker Placement, CAD, GERD, CKD Stage 2-3, DJD, CTS, OA, Apodaca's Palsy, Eczema, Former Smoker and Depression who comes to use from [facility] [place] from evaluation 3 day hx/o shortness of breath admitted for acute congestive heart failure. Assessment: Acute: Acute on chronic chf with preserved ef Elevated proBNP level of 6980 Elevated D-dimer of 1.25 Hypoxia on RA, sting at 84%, now on 2L NC * Has a hx/o chf with preserved ef * She is not on salt/fluid restrictions * Unknown last 2D echo * Her chest rattles according to her * No peripheral signs of volume overload * Plan: heart failure regimen-diuretic, salt/fluid restriction, 2d echo in AM, daily weight check and strict Is/Os UTI Leukocytosis with WBC of 14.38 and Neutrophils of 81% Macrocytic Hypochromic Anemia with Hgb of 10.9 Elevated Ferritin of 260 and CRP of 22.8 * Wears disposable brief overnight due to frequent urination (takes lasix at night not during the day) * She sits on it if diaper is wet until morning; informed patient taking her lasix during the day might be a better option * Elevated WBC is due to urinary tract infection * IV Rocephin 1 gram daily * Pending Urine Cx/Sx * Carries a hx/o CKD stage 2-3 * No report of bleeding or melena * We will monitor Hyperglycemia * Carries no hx/o DM or Glucose Intolerance * Likely from stress * We will monitor Hypoalbuminemia * Albumin of 3.2 * Dietary consult for low protein state Chronic: Impaired Vision/Hearing, PRADEEP, HTN, HLD, HF with Preserved EF, Hx/o NE, S/p Pacemaker Placement, CAD, GERD, CKD Stage 2-3, DJD, CTS, OA, Apodaca's Palsy, Eczema, Former Smoker and Depression Plan: Admit to [facility]. Routine AM labs. Thyroid and Vit D level. ProBNP level. 2D echo in AM. AHA diet. Salt/fluid restrictions. PT/OT to assess and treat. DVT/GI prophylaxis. Additional orders as above. Code status is DNR. - Mortality Measure Prognosis:: Good
[2020-06-21] MEDS ORDERED: Albuterol/Ipratropium 3.0-0.5 MG/3 ML Neb Soln NEB PRN (20:59)
[2020-06-21] MEDS ORDERED: Promethazine 6.25 MG in Sodium Chloride 0.9% 50 ML IV PRN (20:59)
[2020-06-21] MEDS ORDERED: Acetaminophen/HYDROcodone 325-5 MG Tab PO PRN (20:59)
[2020-06-21] MEDS ORDERED: Ondansetron 4 MG/2 ML SDV IV PRN (20:59)
[2020-06-21] MEDS ORDERED: Polyethylene Glycol 3350 Powder 17 GM Packet PO PRN (20:59)
[2020-06-21] MEDS ORDERED: Calcium Carbonate 500 MG Tab.Chew PO PRN (21:03)
[2020-06-21] MEDS ORDERED: Non-Formulary Medication 1 Each (Acetaminophen 1,000 MG) PO PRN (21:03)
[2020-06-21] MEDS ORDERED: Bacitracin/Neomycin/Polymyxin B Oint 15 GM Tube TOP PRN (21:27)
[2020-06-21] MEDS: Fluticasone Propionate Nasal Spray 16 GM Bottle NASBOTH SCH (23:00)
[2020-06-22 08:02] LABS: VITAMIN D,25-HYDROXY 45.1 ng/ml (30.0-100.0)
[2020-06-22] MEDS ORDERED: Loratadine 10 MG Tab PO SCH (09:00)
[2020-06-22] MEDS ORDERED: Non-Formulary Medication 1 Each (Ubidecarenone [Co Q-10] 50 MG) PO SCH (09:00)
[2020-06-22] MEDS ORDERED: Furosemide 40 MG Tab PO SCH (09:00)
[2020-06-22] MEDS ORDERED: Non-Formulary Medication 1 Each (Lutein/Minerals/Vit A,C & E 1 TAB) PO SCH (09:00)
[2020-06-22] MEDS: Multivitamins with Minerals/Folic Acid/Lutein/Zeaxanth Tab PO SCH (09:50)
[2020-06-22] MEDS: Ascorbic Acid 500 MG Tab PO SCH (09:51)
[2020-06-22] MEDS: Carvedilol 12.5 MG Tab PO SCH ×2 (09:51→20:58)
[2020-06-22] MEDS: Saccharomyces Boulardii (Probiotic) 250 MG Cap PO SCH (09:51)
[2020-06-22] MEDS: Calcium Carbonate/Vitamin D3 600 MG-200 Units Tab PO SCH (09:52)
[2020-06-22] MEDS: Aspirin 81 MG Tab.Chew PO SCH ×2 (09:52→20:58)
[2020-06-22] MEDS: Sertraline 50 MG Tab PO SCH (09:52)
[2020-06-22] MEDS: Allopurinol 300 MG Tab PO SCH (09:53)
[2020-06-22] MEDS: Rosuvastatin 10 MG Tab PO SCH (09:53)
[2020-06-22] MEDS: Pantoprazole 40 MG Tab.CR PO SCH (09:54)
[2020-06-22] MEDS: Fluticasone Propionate Nasal Spray 16 GM Bottle NASBOTH SCH ×2 (09:59→22:30)
[2020-06-22] MEDS: Furosemide 40 MG/4 ML VIAL IVPUSH SCH (09:59)
--- NOTE | 2020-06-22 10:07 | PCM.PN ---
- General Info Date of Service: 06/22/20 Admission Dx/Problem (Free Text): Admission Diagnosis/Problem Admission Diagnosis/Problem CHF, Congestive heart failure Subjective Update: Alka states that she is feeling better today. She continues on supplemental FiO2. Otherwise no significant change overnight. She has had a 3 pound weight loss. She was found to be in bigeminy overnight, which converted back to sinus rhythm. Echocardiogram performed this morning. Patient did have an echocardiogram done today. She states that she is being seen by a hole digger that wanted to do some kind of procedure secondary to her heart failure. She refused at the time because she is 89, but has an appointment to follow-up with him next week. Functional Status: Reports: Pain Controlled - Review of Systems General: Reports: No Symptoms HEENT: Reports: No Symptoms Pulmonary: Reports: Shortness of Breath Cardiovascular: Reports: No Symptoms Musculoskeletal: Reports: No Symptoms - Patient Data Vitals - Most Recent: Last Vital Signs Temp 97.9 F 06/22/20 07:16 Pulse 93 06/22/20 09:51 Resp 16 06/22/20 07:16 BP 118/63 06/22/20 09:51 Pulse Ox 94 L 06/22/20 09:34 Weight - Most Recent: 134 lb 14.4 oz I&O - Last 24 Hours: Intake & Output 06/21/20 06/22/20 06/22/20 22:59 06:59 14:59 Intake Total 200 Output Total 650 1350 Balance -650 -1150 Lab Results Last 24 Hours: Laboratory Results - last 24 hr 06/21/20 06/21/20 06/21/20 Range/Units 17:26 17:40 17:40 WBC 14.38 H (3.98-10.04) K/mm3 RBC 3.46 L (3.98-5.22) M/mm3 Hgb 10.9 L D (11.2-15.7) gm/dl Hct 34.3 (34.1-44.9) % MCV 99.1 H (79.4-94.8) fl MCH 31.5 (25.6-32.2) pg MCHC 31.8 L (32.2-35.5) g/dl RDW Std Deviation 46.1 (36.4-46.3) fL Plt Count 250 (182-369) K/mm3 MPV 9.5 (9.4-12.3) fl Neut % (Auto) (34.0-71.1) % Lymph % (Auto) (19.3-51.7) % [place] % (Auto) (4.7-12.5) % Eos % (Auto) (0.7-5.8) Baso % (Auto) (0.1-1.2) % Neut # (Auto) (1.56-6.13) K/mm3 Lymph # (Auto) (1.18-3.74) K/mm3 [place] # (Auto) (0.24-0.36) K/mm3 Eos # (Auto) (0.04-0.36) K/mm3 Baso # (Auto) (0.01-0.08) K/mm3 Neutrophils % (Manual) 81 H (40-60) % Band Neutrophils % 0 (0-10) % Lymphocytes % (Manual) 8 L (20-40) % Atypical Lymphs % 0 % Monocytes % (Manual) 7 (2-10) % Eosinophils % (Manual) 4 (0.7-5.8) % Basophils % (Manual) 0 L (0.1-1.2) Platelet Estimate Adequate Anisocytosis 1+ slight RBC Morph Comment Abnormal PT (9.7-12.0) SECONDS INR APTT (21.7-31.4) SECONDS D-Dimer, Quantitative (0.19-0.50) mg/L Puncture Site ABG pH (7.35-7.45) ABG pCO2 (35.0-45.0) mmHg ABG pO2 (80.0-100.0) mmHg ABG HCO3 (22.0-26.0) meq/L ABG O2 Saturation (96.0-97.0) % ABG Base Excess (-2-2.0) Hal Test A-a Gradient mmHg O2 Delivery Device FiO2 (21.00-100.00) % Sodium (136-145) mEq/L Potassium (3.5-5.1) mEq/L Chloride (98-107) mEq/L Carbon Dioxide (21-32) mEq/L Anion Gap (5-15) BUN (7-18) mg/dL Creatinine (0.55-1.02) mg/dL Est Cr Clr Drug Dosing mL/min Estimated GFR (MDRD) (>60) mL/min BUN/Creatinine Ratio (14-18) Glucose (83-115) mg/dL Lactic Acid (0.4-2.0) mmol/L Calcium (8.5-10.1) mg/dL Magnesium (1.8-2.4) mg/dl Ferritin (8-252) ng/ml Total Bilirubin (0.2-1.0) mg/dL AST (15-37) U/L ALT (14-59) U/L Alkaline Phosphatase (46-116) U/L Lactate Dehydrogenase (81-234) U/L Troponin I (0.00-0.056) ng/mL C-Reactive Protein 22.8 H* (<1.0) mg/dL NT-Pro-B Natriuret Pep (0-450) pg/mL Total Protein (6.4-8.2) g/dl Albumin (3.4-5.0) g/dl Globulin gm/dL Albumin/Globulin Ratio (1-2) Vitamin D 25-Hydroxy (30.0-100.0) ng/ml Free T4 (0.76-1.46) ng/dL TSH 3rd Generation (0.358-3.74) uIU/mL Urine Color (Yellow) Urine Appearance (Clear) Urine pH (5.0-8.0) Ur Specific [place] (1.005-1.030) Urine Protein (Negative) Urine Glucose (UA) (Negative) Urine Ketones (Negative) Urine Occult Blood (Negative) Urine Nitrite (Negative) Urine Bilirubin (Negative) Urine Urobilinogen (0.2-1.0) Ur Leukocyte Esterase (Negative) Urine RBC (0-5) /hpf Urine WBC (0-5) /hpf Ur Squamous Epith Cells (0-5) /hpf Amorphous Sediment (NOT SEEN) /hpf Urine Bacteria (FEW) /hpf Urine Mucus (FEW) /hpf Influenza Type A RNA Negative (NEGATIVE) Influenza Type B RNA Negative (NEGATIVE) SARS-CoV-2 RNA (JEAN-PIERRE) Negative (NEGATIVE) MRSA (PCR) 06/21/20 06/21/20 06/21/20 Range/Units 17:40 17:40 17:40 WBC (3.98-10.04) K/mm3 RBC (3.98-5.22) M/mm3 Hgb (11.2-15.7) gm/dl Hct (34.1-44.9) % MCV (79.4-94.8) fl MCH (25.6-32.2) pg MCHC (32.2-35.5) g/dl RDW Std Deviation (36.4-46.3) fL Plt Count (182-369) K/mm3 MPV (9.4-12.3) fl Neut % (Auto) (34.0-71.1) % Lymph % (Auto) (19.3-51.7) % [place] % (Auto) (4.7-12.5) % Eos % (Auto) (0.7-5.8) Baso % (Auto) (0.1-1.2) % Neut # (Auto) (1.56-6.13) K/mm3 Lymph # (Auto) (1.18-3.74) K/mm3 [place] # (Auto) (0.24-0.36) K/mm3 Eos # (Auto) (0.04-0.36) K/mm3 Baso # (Auto) (0.01-0.08) K/mm3 Neutrophils % (Manual) (40-60) % Band Neutrophils % (0-10) % Lymphocytes % (Manual) (20-40) % Atypical Lymphs % % Monocytes % (Manual) (2-10) % Eosinophils % (Manual) (0.7-5.8) % Basophils % (Manual) (0.1-1.2) Platelet Estimate Anisocytosis RBC Morph Comment PT 11.0 (9.7-12.0) SECONDS INR 1.03 APTT 29.9 (21.7-31.4) SECONDS D-Dimer, Quantitative 1.25 H (0.19-0.50) mg/L Puncture Site ABG pH (7.35-7.45) ABG pCO2 (35.0-45.0) mmHg ABG pO2 (80.0-100.0) mmHg ABG HCO3 (22.0-26.0) meq/L ABG O2 Saturation (96.0-97.0) % ABG Base Excess (-2-2.0) Hal Test A-a Gradient mmHg O2 Delivery Device FiO2 (21.00-100.00) % Sodium 140 (136-145) mEq/L Potassium 4.5 (3.5-5.1) mEq/L Chloride 104 (98-107) mEq/L Carbon Dioxide 21 (21-32) mEq/L Anion Gap 19.5 H (5-15) BUN 28 H (7-18) mg/dL Creatinine 1.5 H (0.55-1.02) mg/dL Est Cr Clr Drug Dosing 20.90 mL/min Estimated GFR (MDRD) 33 (>60) mL/min BUN/Creatinine Ratio 18.7 H (14-18) Glucose 117 H (83-115) mg/dL Lactic Acid (0.4-2.0) mmol/L Calcium 9.1 (8.5-10.1) mg/dL Magnesium 2.2 (1.8-2.4) mg/dl Ferritin (8-252) ng/ml Total Bilirubin 0.5 (0.2-1.0) mg/dL AST 20 (15-37) U/L ALT 21 (14-59) U/L Alkaline Phosphatase 121 H (46-116) U/L Lactate Dehydrogenase 180 (81-234) U/L Troponin I 0.044 (0.00-0.056) ng/mL C-Reactive Protein (<1.0) mg/dL NT-Pro-B Natriuret Pep 6980 H (0-450) pg/mL Total Protein 7.3 (6.4-8.2) g/dl Albumin 3.2 L (3.4-5.0) g/dl Globulin 4.1 gm/dL Albumin/Globulin Ratio 0.8 L (1-2) Vitamin D 25-Hydroxy (30.0-100.0) ng/ml Free T4 (0.76-1.46) ng/dL TSH 3rd Generation (0.358-3.74) uIU/mL Urine Color (Yellow) Urine Appearance (Clear) Urine pH (5.0-8.0) Ur Specific [place] (1.005-1.030) Urine Protein (Negative) Urine Glucose (UA) (Negative) Urine Ketones (Negative) Urine Occult Blood (Negative) Urine Nitrite (Negative) Urine Bilirubin (Negative) Urine Urobilinogen (0.2-1.0) Ur Leukocyte Esterase (Negative) Urine RBC (0-5) /hpf Urine WBC (0-5) /hpf Ur Squamous Epith Cells (0-5) /hpf Amorphous Sediment (NOT SEEN) /hpf Urine Bacteria (FEW) /hpf Urine Mucus (FEW) /hpf Influenza Type A RNA (NEGATIVE) Influenza Type B RNA (NEGATIVE) SARS-CoV-2 RNA (JEAN-PIERRE) (NEGATIVE) MRSA (PCR) 06/21/20 06/21/20 06/21/20 Range/Units 17:40 17:40 17:51 WBC (3.98-10.04) K/mm3 RBC (3.98-5.22) M/mm3 Hgb (11.2-15.7) gm/dl Hct (34.1-44.9) % MCV (79.4-94.8) fl MCH (25.6-32.2) pg MCHC (32.2-35.5) g/dl RDW Std Deviation (36.4-46.3) fL Plt Count (182-369) K/mm3 MPV (9.4-12.3) fl Neut % (Auto) (34.0-71.1) % Lymph % (Auto) (19.3-51.7) % [place] % (Auto) (4.7-12.5) % Eos % (Auto) (0.7-5.8) Baso % (Auto) (0.1-1.2) % Neut # (Auto) (1.56-6.13) K/mm3 Lymph # (Auto) (1.18-3.74) K/mm3 [place] # (Auto) (0.24-0.36) K/mm3 Eos # (Auto) (0.04-0.36) K/mm3 Baso # (Auto) (0.01-0.08) K/mm3 Neutrophils % (Manual) (40-60) % Band Neutrophils % (0-10) % Lymphocytes % (Manual) (20-40) % Atypical Lymphs % % Monocytes % (Manual) (2-10) % Eosinophils % (Manual) (0.7-5.8) % Basophils % (Manual) (0.1-1.2) Platelet Estimate Anisocytosis RBC Morph Comment PT (9.7-12.0) SECONDS INR APTT (21.7-31.4) SECONDS D-Dimer, Quantitative (0.19-0.50) mg/L Puncture Site Lt radial ABG pH 7.47 H (7.35-7.45) ABG pCO2 24.0 L (35.0-45.0) mmHg ABG pO2 47.0 L (80.0-100.0) mmHg ABG HCO3 17.3 L (22.0-26.0) meq/L ABG O2 Saturation 84.8 L (96.0-97.0) % ABG Base Excess -4.7 L (-2-2.0) Hal Test Positive A-a Gradient 73 mmHg O2 Delivery Device Room air FiO2 21.00 (21.00-100.00) % Sodium (136-145) mEq/L Potassium (3.5-5.1) mEq/L Chloride (98-107) mEq/L Carbon Dioxide (21-32) mEq/L Anion Gap (5-15) BUN (7-18) mg/dL Creatinine (0.55-1.02) mg/dL Est Cr Clr Drug Dosing mL/min Estimated GFR (MDRD) (>60) mL/min BUN/Creatinine Ratio (14-18) Glucose (83-115) mg/dL Lactic Acid 1.0 (0.4-2.0) mmol/L Calcium (8.5-10.1) mg/dL Magnesium (1.8-2.4) mg/dl Ferritin 260 H (8-252) ng/ml Total Bilirubin (0.2-1.0) mg/dL AST (15-37) U/L ALT (14-59) U/L Alkaline Phosphatase (46-116) U/L Lactate Dehydrogenase (81-234) U/L Troponin I (0.00-0.056) ng/mL C-Reactive Protein (<1.0) mg/dL NT-Pro-B Natriuret Pep (0-450) pg/mL Total Protein (6.4-8.2) g/dl Albumin (3.4-5.0) g/dl Globulin gm/dL Albumin/Globulin Ratio (1-2) Vitamin D 25-Hydroxy (30.0-100.0) ng/ml Free T4 (0.76-1.46) ng/dL TSH 3rd Generation (0.358-3.74) uIU/mL Urine Color (Yellow) Urine Appearance (Clear) Urine pH (5.0-8.0) Ur Specific [place] (1.005-1.030) Urine Protein (Negative) Urine Glucose (UA) (Negative) Urine Ketones (Negative) Urine Occult Blood (Negative) Urine Nitrite (Negative) Urine Bilirubin (Negative) Urine Urobilinogen (0.2-1.0) Ur Leukocyte Esterase (Negative) Urine RBC (0-5) /hpf Urine WBC (0-5) /hpf Ur Squamous Epith Cells (0-5) /hpf Amorphous Sediment (NOT SEEN) /hpf Urine Bacteria (FEW) /hpf Urine Mucus (FEW) /hpf Influenza Type A RNA (NEGATIVE) Influenza Type B RNA (NEGATIVE) SARS-CoV-2 RNA (JEAN-PIERRE) (NEGATIVE) MRSA (PCR) 06/21/20 06/21/20 06/22/20 Range/Units 17:55 21:27 05:50 WBC 10.25 H (3.98-10.04) K/mm3 RBC 3.28 L (3.98-5.22) M/mm3 Hgb 10.1 L (11.2-15.7) gm/dl Hct 32.6 L (34.1-44.9) % MCV 99.4 H (79.4-94.8) fl MCH 30.8 (25.6-32.2) pg MCHC 31.0 L (32.2-35.5) g/dl RDW Std Deviation 47.0 H (36.4-46.3) fL Plt Count 258 (182-369) K/mm3 MPV 9.7 (9.4-12.3) fl Neut % (Auto) 70.6 (34.0-71.1) % Lymph % (Auto) 12.4 L (19.3-51.7) % [place] % (Auto) 9.6 (4.7-12.5) % Eos % (Auto) 6.7 H (0.7-5.8) Baso % (Auto) 0.5 (0.1-1.2) % Neut # (Auto) 7.24 H (1.56-6.13) K/mm3 Lymph # (Auto) 1.27 (1.18-3.74) K/mm3 [place] # (Auto) 0.98 H (0.24-0.36) K/mm3 Eos # (Auto) 0.69 H (0.04-0.36) K/mm3 Baso # (Auto) 0.05 (0.01-0.08) K/mm3 Neutrophils % (Manual) (40-60) % Band Neutrophils % (0-10) % Lymphocytes % (Manual) (20-40) % Atypical Lymphs % % Monocytes % (Manual) (2-10) % Eosinophils % (Manual) (0.7-5.8) % Basophils % (Manual) (0.1-1.2) Platelet Estimate Anisocytosis RBC Morph Comment PT (9.7-12.0) SECONDS INR APTT (21.7-31.4) SECONDS D-Dimer, Quantitative (0.19-0.50) mg/L Puncture Site ABG pH (7.35-7.45) ABG pCO2 (35.0-45.0) mmHg ABG pO2 (80.0-100.0) mmHg ABG HCO3 (22.0-26.0) meq/L ABG O2 Saturation (96.0-97.0) % ABG Base Excess (-2-2.0) Hal Test A-a Gradient mmHg O2 Delivery Device FiO2 (21.00-100.00) % Sodium (136-145) mEq/L Potassium (3.5-5.1) mEq/L Chloride (98-107) mEq/L Carbon Dioxide (21-32) mEq/L Anion Gap (5-15) BUN (7-18) mg/dL Creatinine (0.55-1.02) mg/dL Est Cr Clr Drug Dosing mL/min Estimated GFR (MDRD) (>60) mL/min BUN/Creatinine Ratio (14-18) Glucose (83-115) mg/dL Lactic Acid (0.4-2.0) mmol/L Calcium (8.5-10.1) mg/dL Magnesium (1.8-2.4) mg/dl Ferritin (8-252) ng/ml Total Bilirubin (0.2-1.0) mg/dL AST (15-37) U/L ALT (14-59) U/L Alkaline Phosphatase (46-116) U/L Lactate Dehydrogenase (81-234) U/L Troponin I (0.00-0.056) ng/mL C-Reactive Protein (<1.0) mg/dL NT-Pro-B Natriuret Pep (0-450) pg/mL Total Protein (6.4-8.2) g/dl Albumin (3.4-5.0) g/dl Globulin gm/dL Albumin/Globulin Ratio (1-2) Vitamin D 25-Hydroxy (30.0-100.0) ng/ml Free T4 (0.76-1.46) ng/dL TSH 3rd Generation (0.358-3.74) uIU/mL Urine Color Yellow (Yellow) Urine Appearance Slt cloudy H (Clear) Urine pH 6.0 (5.0-8.0) Ur Specific [place] 1.020 (1.005-1.030) Urine Protein 2+ H (Negative) Urine Glucose (UA) Negative (Negative) Urine Ketones Trace H (Negative) Urine Occult Blood 1+ H (Negative) Urine Nitrite Positive H (Negative) Urine Bilirubin Negative (Negative) Urine Urobilinogen 0.2 (0.2-1.0) Ur Leukocyte Esterase 2+ H (Negative) Urine RBC 10-20 H (0-5) /hpf Urine WBC 50-75 H (0-5) /hpf Ur Squamous Epith Cells 5-10 H (0-5) /hpf Amorphous Sediment Rare H (NOT SEEN) /hpf Urine Bacteria Many H (FEW) /hpf Urine Mucus Not seen (FEW) /hpf Influenza Type A RNA (NEGATIVE) Influenza Type B RNA (NEGATIVE) SARS-CoV-2 RNA (JEAN-PIERRE) (NEGATIVE) MRSA (PCR) Negative 06/22/20 06/22/20 Range/Units 05:50 05:50 WBC (3.98-10.04) K/mm3 RBC (3.98-5.22) M/mm3 Hgb (11.2-15.7) gm/dl Hct (34.1-44.9) % MCV (79.4-94.8) fl MCH (25.6-32.2) pg MCHC (32.2-35.5) g/dl RDW Std Deviation (36.4-46.3) fL Plt Count (182-369) K/mm3 MPV (9.4-12.3) fl Neut % (Auto) (34.0-71.1) % Lymph % (Auto) (19.3-51.7) % [place] % (Auto) (4.7-12.5) % Eos % (Auto) (0.7-5.8) Baso % (Auto) (0.1-1.2) % Neut # (Auto) (1.56-6.13) K/mm3 Lymph # (Auto) (1.18-3.74) K/mm3 [place] # (Auto) (0.24-0.36) K/mm3 Eos # (Auto) (0.04-0.36) K/mm3 Baso # (Auto) (0.01-0.08) K/mm3 Neutrophils % (Manual) (40-60) % Band Neutrophils % (0-10) % Lymphocytes % (Manual) (20-40) % Atypical Lymphs % % Monocytes % (Manual) (2-10) % Eosinophils % (Manual) (0.7-5.8) % Basophils % (Manual) (0.1-1.2) Platelet Estimate Anisocytosis RBC Morph Comment PT (9.7-12.0) SECONDS INR APTT (21.7-31.4) SECONDS D-Dimer, Quantitative (0.19-0.50) mg/L Puncture Site ABG pH (7.35-7.45) ABG pCO2 (35.0-45.0) mmHg ABG pO2 (80.0-100.0) mmHg ABG HCO3 (22.0-26.0) meq/L ABG O2 Saturation (96.0-97.0) % ABG Base Excess (-2-2.0) Hal Test A-a Gradient mmHg O2 Delivery Device FiO2 (21.00-100.00) % Sodium 145 (136-145) mEq/L Potassium 3.5 (3.5-5.1) mEq/L Chloride 106 (98-107) mEq/L Carbon Dioxide 23 (21-32) mEq/L Anion Gap 19.5 H (5-15) BUN 23 H (7-18) mg/dL Creatinine 1.4 H (0.55-1.02) mg/dL Est Cr Clr Drug Dosing 22.39 mL/min Estimated GFR (MDRD) 36 (>60) mL/min BUN/Creatinine Ratio 16.4 (14-18) Glucose 100 (83-115) mg/dL Lactic Acid (0.4-2.0) mmol/L Calcium 8.9 (8.5-10.1) mg/dL Magnesium 2.2 (1.8-2.4) mg/dl Ferritin (8-252) ng/ml Total Bilirubin (0.2-1.0) mg/dL AST (15-37) U/L ALT (14-59) U/L Alkaline Phosphatase (46-116) U/L Lactate Dehydrogenase (81-234) U/L Troponin I 0.055 (0.00-0.056) ng/mL C-Reactive Protein 20.9 H* (<1.0) mg/dL NT-Pro-B Natriuret Pep 48267 H (0-450) pg/mL Total Protein (6.4-8.2) g/dl Albumin (3.4-5.0) g/dl Globulin gm/dL Albumin/Globulin Ratio (1-2) Vitamin D 25-Hydroxy 45.1 (30.0-100.0) ng/ml Free T4 0.98 (0.76-1.46) ng/dL TSH 3rd Generation 2.952 (0.358-3.74) uIU/mL Urine Color (Yellow) Urine Appearance (Clear) Urine pH (5.0-8.0) Ur Specific [place] (1.005-1.030) Urine Protein (Negative) Urine Glucose (UA) (Negative) Urine Ketones (Negative) Urine Occult Blood (Negative) Urine Nitrite (Negative) Urine Bilirubin (Negative) Urine Urobilinogen (0.2-1.0) Ur Leukocyte Esterase (Negative) Urine RBC (0-5) /hpf Urine WBC (0-5) /hpf Ur Squamous Epith Cells (0-5) /hpf Amorphous Sediment (NOT SEEN) /hpf Urine Bacteria (FEW) /hpf Urine Mucus (FEW) /hpf Influenza Type A RNA (NEGATIVE) Influenza Type B RNA (NEGATIVE) SARS-CoV-2 RNA (JEAN-PIERRE) (NEGATIVE) MRSA (PCR) Chris Results Last 24 Hours: Microbiology 06/21/20 17:55 Urine Culture - Preliminary Urine, Clean Catch Gram Negative Rods Med Orders - Current: Current Medications Acetaminophen (Tylenol) 650 mg PO Q4H PRN PRN Reason: Pain (Mild 1-3)/fever Hydrocodone Bitart/Acetaminophen ([place] 325-5 Mg) 1 tab PO Q4H PRN PRN Reason: Pain (moderate 4-6) Albuterol/Ipratropium (Duoneb 3.0-0.5 Mg/3 Ml) 3 ml NEB Q4H PRN PRN Reason: Shortness Of Breath/wheezing Allopurinol (Zyloprim) 300 mg PO DAILY [facility] Last Admin: 06/22/20 09:53 Dose: 300 mg Documented by: Ascorbic Acid (Vitamin C) 500 mg PO DAILY [facility] Last Admin: 06/22/20 09:51 Dose: 500 mg Documented by: Aspirin (Aspirin) 81 mg PO BID [facility] Last Admin: 06/22/20 09:52 Dose: 81 mg Documented by: Calcium Carbonate (Calcium Carbonate/Vitamin D 600 Mg-200 Unit) 1 tab PO DAILY [facility] Last Admin: 06/22/20 09:52 Dose: 1 tab Documented by: Calcium Carbonate/Glycine (Tums) 1,000 mg PO ASDIRECTED PRN PRN Reason: Indigestion Carvedilol (Coreg) 12.5 mg PO BID [facility] Last Admin: 06/22/20 09:51 Dose: 12.5 mg Documented by: Fluticasone Propionate (Flonase) 0 gm NASBOTH DAILY [facility] Last Admin: 06/22/20 09:59 Dose: 1 spray Documented by: Furosemide (Lasix) 40 mg IVPUSH DAILY [facility] Last Admin: 06/22/20 09:59 Dose: 40 mg Documented by: Promethazine HCl 6.25 mg/ (Sodium Chloride) 50.25 mls @ 100 mls/hr IV Q6H PRN PRN Reason: Nausea/Vomiting Ceftriaxone Sodium 1 gm/ (Sodium Chloride) 100 mls @ 200 mls/hr IV Q24H [facility] Loratadine (Claritin) 10 mg PO DAILY [facility] Last Admin: 06/22/20 09:51 Dose: 10 mg Documented by: Neomycin/Polymyxin/Bacitracin (Neosporin Oint) 1 gm TOP ASDIRECTED PRN PRN Reason: abrasions Non-Formulary Medication (Cyanocobalamin (Vitamin B-12)) 100 mcg PO DAILY [facility] Ondansetron HCl (Zofran) 4 mg IV Q6H PRN PRN Reason: Nausea/Vomiting Pantoprazole Sodium (Protonix) 40 mg PO DAILY [facility] Last Admin: 06/22/20 09:54 Dose: 40 mg Documented by: Polyethylene Glycol (Miralax) 17 gm PO DAILY PRN PRN Reason: Constipation Rosuvastatin Calcium (Crestor) 5 mg PO DAILY [facility] Last Admin: 06/22/20 09:53 Dose: 5 mg Documented by: Saccharomyces Boulardii (Florastor) 250 mg PO DAILY [facility] Last Admin: 06/22/20 09:51 Dose: 250 mg Documented by: Senna/Docusate Sodium (Senna Plus) 1 tab PO BID PRN PRN Reason: Constipation Sertraline HCl (Zoloft) 75 mg PO DAILY [facility] Last Admin: 06/22/20 09:52 Dose: 75 mg Documented by: Sodium Chloride (Saline Flush) 10 ml FLUSH ASDIRECTED PRN PRN Reason: Keep Vein Open Last Admin: 06/21/20 18:11 Dose: 10 ml Documented by: Sodium Chloride (Saline Flush) 10 ml FLUSH ASDIRECTED PRN PRN Reason: Keep Vein Open Vit A/Vit C/Vit E/Selen/Cu/Zn/Lutei (Icaps Mv) 1 tab PO DAILY [facility] Last Admin: 06/22/20 09:50 Dose: 1 tab Documented by: Discontinued Medications Aspirin (Aspirin) 162 mg PO BID [facility] Furosemide (Lasix) 40 mg IVPUSH NOW ONE Stop: 06/21/20 19:09 Last Admin: 06/21/20 19:46 Dose: 40 mg Documented by: Furosemide (Lasix) 40 mg PO DAILY [facility] Ceftriaxone Sodium 2 gm/ (Sodium Chloride) 100 mls @ 200 mls/hr IV ONETIME ONE Stop: 06/21/20 19:51 Last Admin: 06/21/20 19:46 Dose: 200 mls/hr Documented by: Ceftriaxone Sodium 1 gm/ (Sodium Chloride) 100 mls @ 200 mls/hr IV Q24H [facility] Stop: 06/25/20 19:31 Non-Formulary Medication (Acetaminophen) 1,000 mg PO Q6HR PRN PRN Reason: Pain Non-Formulary Medication (Lutein/Minerals/Vit A,C & E) 1 tab PO DAILY [facility] Non-Formulary Medication (Ubidecarenone [Co Q-10]) 50 mg PO DAILY [facility] - Exam Quality Assessment: Supplemental Oxygen General: Alert, Oriented HEENT: Pupils Equal, Mucous Membr. Moist/Louise Neck: Supple Lungs: Normal Respiratory Effort, Crackles (Bibasilar) Cardiovascular: Regular Rate, Regular Rhythm GI/Abdominal Exam: Normal Bowel Sounds, Soft, Non-Tender, No Distention Extremities: Normal Inspection, No Pedal Edema, Normal Capillary Refill Skin: Warm, Dry, Intact Psy/Mental Status: Alert, Normal Affect, Normal Mood Sepsis Event Note - Evaluation Sepsis Screening Result: Sepsis Risk - Focused Exam Vital Signs: Vital Signs Temp Pulse Pulse Resp BP Pulse Ox Pulse Ox 06/22/20 09:51 93 118/63 06/22/20 09:34 94 L 06/22/20 07:16 97.9 F 95 16 118/63 92 L 06/22/20 05:30 95 06/22/20 04:58 98.8 F 96 18 135/62 96 06/22/20 01:52 44 L 44 L 24 H 113/37 L 95 06/22/20 01:38 26 H 06/22/20 01:30 93 L 06/22/20 01:27 46 L 25 H 94 L 06/22/20 01:21 26 H 06/22/20 01:16 44 L 120/53 L 88 L 06/22/20 01:11 45 L 90 L 06/22/20 00:50 98.1 F 99 24 H 128/64 93 L - Problem List & Annotations (1) Acute CHF (congestive heart failure) SNOMED Code(s): 39540014 Code(s): I50.9 - HEART FAILURE, UNSPECIFIED Status: Acute Current Visit: Yes Qualifiers: Heart failure type: unspecified Qualified Code(s): I50.9 - Heart failure, unspecified (2) UTI (urinary tract infection) SNOMED Code(s): 33713847 Code(s): N39.0 - URINARY TRACT INFECTION, SITE NOT SPECIFIED Status: Acute Current Visit: Yes Qualifiers: Urinary tract infection type: acute cystitis Hematuria presence: with hem aturia Qualified Code(s): N30.01 - Acute cystitis with hematuria (3) Leukocytosis SNOMED Code(s): 425411579, 565959047 Code(s): D72.829 - ELEVATED WHITE BLOOD CELL COUNT, UNSPECIFIED Status: Acute Current Visit: No Qualifiers: Leukocytosis type: unspecified Qualified Code(s): D72.829 - Elevated white blood cell count, unspecified (4) Kidney failure SNOMED Code(s): 55067498 Code(s): N19 - UNSPECIFIED KIDNEY FAILURE Status: Acute Current Visit: Yes - Problem List Review Problem List Initiated/Reviewed/Updated: Yes - My Orders Last 24 Hours: My Active Orders 06/22/20 09:00 Furosemide [Lasix] 40 mg IVPUSH DAILY - Plan Plan:: This is an 89 yo elderly white female with past medical hx/o past medical hx/o Impaired Vision/Hearing, PRADEEP, HTN, HLD, HF with Preserved EF, Hx/o CT, S/p Pacemaker Placement, CAD, GERD, CKD Stage 2-3, DJD, CTS, OA, Apodaca's Palsy, Eczema, Former Smoker and Depression who comes to use from [facility] from ev aluation 3 day hx/o shortness of breath admitted for acute congestive heart failure. 06/21/2020 Assessment: Acute: Acute on chronic chf with preserved ef Elevated proBNP level of 6980 Elevated D-dimer of 1.25 Hypoxia on RA, sting at 84%, now on 2L NC * Has a hx/o chf with preserved ef * She is not on salt/fluid restrictions * Unknown last 2D echo * Her chest rattles according to her * No peripheral signs of volume overload * Plan: heart failure regimen-diuretic, salt/fluid restriction, 2d echo in AM, daily weight check and strict Is/Os UTI Leukocytosis with WBC of 14.38 and Neutrophils of 81% Macrocytic Hypochromic Anemia with Hgb of 10.9 Elevated Ferritin of 260 and CRP of 22.8 * Wears disposable brief overnight due to frequent urination (takes lasix at night not during the day) * She sits on it if diaper is wet until morning; informed patient taking her lasix during the day might be a better option * Elevated WBC is due to urinary tract infection * IV Rocephin 1 gram daily * Pending Urine Cx/Sx * Carries a hx/o CKD stage 2-3 * No report of bleeding or melena * We will monitor Hyperglycemia * Carries no hx/o DM or Glucose Intolerance * Likely from stress * We will monitor Hypoalbuminemia * Albumin of 3.2 * Dietary consult for low protein state Chronic: mpaired Vision/Hearing, PRADEEP, HTN, HLD, HF with Preserved EF, Hx/o CT, S/p Pacemaker Placement, CAD, GERD, CKD Stage 2-3, DJD, CTS, OA, Apodaca's Palsy, Eczema, Former Smoker and Depression Plan: Admit to [facility]. Routine AM labs. Thyroid and Vit D level. ProBNP level. 2D echo in AM. AHA diet. Salt/fluid restrictions. PT/OT to assess and treat. DVT/Gi prophylaxis. Additional orders as above. Code status is DNR. 06/22/2020 Patient has had a 3 pound weight loss. Received 1 dose of Lasix 40 mg IV in the emergency department yesterday. She continues on 1 L of nasal cannula O2 and oxygen saturations are still in the mid 90s. Pressure continues to be adequate with diuresis. CBC does not demonstrate a hemoconcentration yet with her hemoglobin actually dropping 0.8-10.1. WBCs have decreased to 10.25 from 14.38. Electrolytes are still good with potassium of 3.5, but that is down from 4.5 just yesterday. This will need supplementation. Kidney function continues to be poor and it is likely she has chronic renal insufficiency stage III. Creatinine is 1.4 with an estimated GFR of 36. C-reactive protein has come down to 20.9, but proBNP is up from 6980-10,259. This demonstrates the difficulty of trending proBNP especially in patients with kidney disease. TSH and free T4 are normal as well as vitamin D. Temperature has continued to be normal and respiratory rate is also normal at 16. She is on ceftriaxone 1 g daily and cultures are pending. Blood sugar overnight showed a glucose of 100. She had one episode of elevated blood sugar yesterday. Likely secondary to stress. Plan * Lasix 40 mg IV this morning and review afternoon urine output to see if this gives adequate response. * Continue to follow blood pressure, oxygen saturation, daily weights, and I's and O's. * Fluid restriction of 1800 mL a day * Check hemoglobin A1c * Give K. Dur 40 mEq x 1 * Recheck CBC, CMP, magnesium in the morning * Continue Rocephin and await blood cultures * Start Lovenox for VTE prophylaxis * Await echocardiogram results
[2020-06-22] MEDS ORDERED: Potassium Chloride 20 MEQ Tab.ER PO ONE ×2 (11:00→17:30)
[2020-06-22] MEDS ORDERED: Furosemide 20 MG/2 ML VIAL IVPUSH ONE (17:22)
[2020-06-22] MEDS: Enoxaparin 30 MG/0.3 ML Syringe SUBCUT SCH (17:29)
[2020-06-22] MEDS: cefTRIAXone 1 GM in Sodium Chloride 0.9% 100 ML IV SCH ×2 (18:27→21:18)
[2020-06-22] MEDS ORDERED: cefTRIAXone 1 GM in Sodium Chloride 0.9% 100 ML IV SCH (19:30)
[2020-06-22] MEDS: Acetaminophen 325 MG Tab PO PRN (20:58)
[2020-06-23 07:14] LABS: HEMOGLOBIN A1C 6.1 %
--- NOTE | 2020-06-23 08:17 | PCM.PN ---
- General Info Date of Service: 06/23/20 Admission Dx/Problem (Free Text): Admission Diagnosis/Problem Admission Diagnosis/Problem CHF, Congestive heart failure Subjective Update: Patient states she is feeling well. She is not short of breath. Appetite is good. I spoke with her daughter today who states that she has an appointment with cardiology and cardiothoracic surgery tomorrow in [place]. Unfortunately, I doubt she will be able to be discharged in time to make both those appointments. - Review of Systems General: Reports: No Symptoms HEENT: Reports: No Symptoms Pulmonary: Reports: No Symptoms Cardiovascular: Reports: No Symptoms Musculoskeletal: Reports: No Symptoms - Patient Data Vitals - Most Recent: Last Vital Signs Temp 97.9 F 06/23/20 03:03 Pulse 83 06/23/20 03:03 Resp 16 06/23/20 03:03 BP 122/59 L 06/23/20 03:03 Pulse Ox 91 L 06/23/20 06:10 Weight - Most Recent: 136 lb 3.2 oz I&O - Last 24 Hours: Intake & Output 06/22/20 06/23/20 06/23/20 22:59 06:59 14:59 Intake Total 720 50 Output Total 1250 300 Balance -530 -250 Lab Results Last 24 Hours: Laboratory Results - last 24 hr 06/22/20 06/22/20 06/23/20 Range/Units 05:50 05:50 04:25 WBC (3.98-10.04) K/mm3 RBC (3.98-5.22) M/mm3 Hgb (11.2-15.7) gm/dl Hct (34.1-44.9) % MCV (79.4-94.8) fl MCH (25.6-32.2) pg MCHC (32.2-35.5) g/dl RDW Std Deviation (36.4-46.3) fL Plt Count (182-369) K/mm3 MPV (9.4-12.3) fl Neut % (Auto) (34.0-71.1) % Lymph % (Auto) (19.3-51.7) % [place] % (Auto) (4.7-12.5) % Eos % (Auto) (0.7-5.8) Baso % (Auto) (0.1-1.2) % Neut # (Auto) (1.56-6.13) K/mm3 Lymph # (Auto) (1.18-3.74) K/mm3 [place] # (Auto) (0.24-0.36) K/mm3 Eos # (Auto) (0.04-0.36) K/mm3 Baso # (Auto) (0.01-0.08) K/mm3 Sodium 143 (136-145) mEq/L Potassium 4.0 (3.5-5.1) mEq/L Chloride 107 (98-107) mEq/L Carbon Dioxide 25 (21-32) mEq/L Anion Gap 15.0 (5-15) BUN 29 H (7-18) mg/dL Creatinine 1.5 H (0.55-1.02) mg/dL Est Cr Clr Drug Dosing 20.90 mL/min Estimated GFR (MDRD) 33 (>60) mL/min BUN/Creatinine Ratio 19.3 H (14-18) Glucose 94 (83-115) mg/dL Hemoglobin A1c ( - 5.6) % Calcium 8.8 (8.5-10.1) mg/dL Magnesium 2.1 (1.8-2.4) mg/dl Total Bilirubin 0.2 (0.2-1.0) mg/dL AST 17 (15-37) U/L ALT 19 (14-59) U/L Alkaline Phosphatase 107 (46-116) U/L C-Reactive Protein 16.3 H* (<1.0) mg/dL NT-Pro-B Natriuret Pep 10479 H (0-450) pg/mL Total Protein 6.6 (6.4-8.2) g/dl Albumin 2.8 L (3.4-5.0) g/dl Globulin 3.8 gm/dL Albumin/Globulin Ratio 0.7 L (1-2) Vitamin D 25-Hydroxy 45.1 (30.0-100.0) ng/ml 06/23/20 06/23/20 06/23/20 Range/Units 04:25 04:25 04:25 WBC 9.72 (3.98-10.04) K/mm3 RBC 3.24 L (3.98-5.22) M/mm3 Hgb 10.1 L (11.2-15.7) gm/dl Hct 32.3 L (34.1-44.9) % MCV 99.7 H (79.4-94.8) fl MCH 31.2 (25.6-32.2) pg MCHC 31.3 L (32.2-35.5) g/dl RDW Std Deviation 46.2 (36.4-46.3) fL Plt Count 256 (182-369) K/mm3 MPV 9.5 (9.4-12.3) fl Neut % (Auto) 60.9 (34.0-71.1) % Lymph % (Auto) 17.6 L (19.3-51.7) % [place] % (Auto) 9.2 (4.7-12.5) % Eos % (Auto) 11.3 H (0.7-5.8) Baso % (Auto) 0.8 (0.1-1.2) % Neut # (Auto) 5.92 (1.56-6.13) K/mm3 Lymph # (Auto) 1.71 (1.18-3.74) K/mm3 [place] # (Auto) 0.89 H (0.24-0.36) K/mm3 Eos # (Auto) 1.10 H (0.04-0.36) K/mm3 Baso # (Auto) 0.08 (0.01-0.08) K/mm3 Sodium (136-145) mEq/L Potassium (3.5-5.1) mEq/L Chloride (98-107) mEq/L Carbon Dioxide (21-32) mEq/L Anion Gap (5-15) BUN (7-18) mg/dL Creatinine (0.55-1.02) mg/dL Est Cr Clr Drug Dosing mL/min Estimated GFR (MDRD) (>60) mL/min BUN/Creatinine Ratio (14-18) Glucose (83-115) mg/dL Hemoglobin A1c 6.1 H ( - 5.6) % Calcium (8.5-10.1) mg/dL Magnesium (1.8-2.4) mg/dl Total Bilirubin (0.2-1.0) mg/dL AST (15-37) U/L ALT (14-59) U/L Alkaline Phosphatase (46-116) U/L C-Reactive Protein (<1.0) mg/dL NT-Pro-B Natriuret Pep 6246 H (0-450) pg/mL Total Protein (6.4-8.2) g/dl Albumin (3.4-5.0) g/dl Globulin gm/dL Albumin/Globulin Ratio (1-2) Vitamin D 25-Hydroxy (30.0-100.0) ng/ml Chris Results Last 24 Hours: Microbiology 06/21/20 19:20 Aerobic Blood Culture - Preliminary Blood - Venous - Lab Draw NO GROWTH AFTER 1 DAY Anaerobic Blood Culture - Preliminary NO GROWTH AFTER 1 DAY 06/21/20 19:25 Aerobic Blood Culture - Preliminary Blood - Venous NO GROWTH AFTER 1 DAY Anaerobic Blood Culture - Preliminary NO GROWTH AFTER 1 DAY 06/21/20 17:55 Urine Culture - Preliminary Urine, Clean Catch Gram Negative Rods Med Orders - Current: Current Medications Acetaminophen (Tylenol) 650 mg PO Q4H PRN PRN Reason: Pain (Mild 1-3)/fever Last Admin: 06/22/20 20:58 Dose: 650 mg Documented by: Hydrocodone Bitart/Acetaminophen ([place] 325-5 Mg) 1 tab PO Q4H PRN PRN Reason: Pain (moderate 4-6) Albuterol/Ipratropium (Duoneb 3.0-0.5 Mg/3 Ml) 3 ml NEB Q4H PRN PRN Reason: Shortness Of Breath/wheezing Allopurinol (Zyloprim) 300 mg PO DAILY [facility] Last Admin: 06/22/20 09:53 Dose: 300 mg Documented by: Ascorbic Acid (Vitamin C) 500 mg PO DAILY [facility] Last Admin: 06/22/20 09:51 Dose: 500 mg Documented by: Aspirin (Aspirin) 81 mg PO BID [facility] Last Admin: 06/22/20 20:58 Dose: 81 mg Documented by: Calcium Carbonate (Calcium Carbonate/Vitamin D 600 Mg-200 Unit) 1 tab PO DAILY [facility] Last Admin: 06/22/20 09:52 Dose: 1 tab Documented by: Calcium Carbonate/Glycine (Tums) 1,000 mg PO ASDIRECTED PRN PRN Reason: Indigestion Carvedilol (Coreg) 12.5 mg PO BID [facility] Last Admin: 06/22/20 20:58 Dose: 12.5 mg Documented by: Cyanocobalamin (Vitamin B12) 1,000 mcg PO DAILY [facility] Enoxaparin Sodium (Lovenox) 30 mg SUBCUT DAILY [facility] Last Admin: 06/22/20 17:29 Dose: 30 mg Documented by: Fluticasone Propionate (Flonase) 0 gm NASBOTH BID [facility] Last Admin: 06/22/20 22:30 Dose: 2 sprays Documented by: Furosemide (Lasix) 40 mg IVPUSH DAILY [facility] Last Admin: 06/22/20 09:59 Dose: 40 mg Documented by: Promethazine HCl 6.25 mg/ (Sodium Chloride) 50.25 mls @ 100 mls/hr IV Q6H PRN PRN Reason: Nausea/Vomiting Ceftriaxone Sodium 1 gm/ (Sodium Chloride) 100 mls @ 200 mls/hr IV Q24H [facility] Last Admin: 06/22/20 21:18 Dose: Not Given Documented by: Loratadine (Claritin) 10 mg PO Q48H [facility] Neomycin/Polymyxin/Bacitracin (Neosporin Oint) 1 gm TOP ASDIRECTED PRN PRN Reason: abrasions Ondansetron HCl (Zofran) 4 mg IV Q6H PRN PRN Reason: Nausea/Vomiting Pantoprazole Sodium (Protonix) 40 mg PO DAILY [facility] Last Admin: 06/22/20 09:54 Dose: 40 mg Documented by: Polyethylene Glycol (Miralax) 17 gm PO DAILY PRN PRN Reason: Constipation Rosuvastatin Calcium (Crestor) 5 mg PO DAILY [facility] Last Admin: 06/22/20 09:53 Dose: 5 mg Documented by: Saccharomyces Boulardii (Florastor) 250 mg PO DAILY [facility] Last Admin: 06/22/20 09:51 Dose: 250 mg Documented by: Senna/Docusate Sodium (Senna Plus) 1 tab PO BID PRN PRN Reason: Constipation Sertraline HCl (Zoloft) 75 mg PO DAILY [facility] Last Admin: 06/22/20 09:52 Dose: 75 mg Documented by: Sodium Chloride (Saline Flush) 10 ml FLUSH ASDIRECTED PRN PRN Reason: Keep Vein Open Last Admin: 06/21/20 18:11 Dose: 10 ml Documented by: Sodium Chloride (Saline Flush) 10 ml FLUSH ASDIRECTED PRN PRN Reason: Keep Vein Open Vit A/Vit C/Vit E/Selen/Cu/Zn/Lutei (Icaps Mv) 1 tab PO DAILY [facility] Last Admin: 06/22/20 09:50 Dose: 1 tab Documented by: Discontinued Medications Aspirin (Aspirin) 162 mg PO BID [facility] Fluticasone Propionate (Flonase) 0 gm NASBOTH DAILY [facility] Last Admin: 06/22/20 09:59 Dose: 1 spray Documented by: Furosemide (Lasix) 40 mg IVPUSH NOW ONE Stop: 06/21/20 19:09 Last Admin: 06/21/20 19:46 Dose: 40 mg Documented by: Furosemide (Lasix) 40 mg PO DAILY [facility] Furosemide (Lasix) 20 mg IVPUSH ONETIME ONE Stop: 06/22/20 17:23 Last Admin: 06/22/20 17:56 Dose: 20 mg Documented by: Ceftriaxone Sodium 2 gm/ (Sodium Chloride) 100 mls @ 200 mls/hr IV ONETIME ONE Stop: 06/21/20 19:51 Last Admin: 06/21/20 19:46 Dose: 200 mls/hr Documented by: Ceftriaxone Sodium 1 gm/ (Sodium Chloride) 100 mls @ 200 mls/hr IV Q24H [place] Stop: 06/25/20 19:31 Loratadine (Claritin) 10 mg PO DAILY [facility] Last Admin: 06/22/20 09:51 Dose: 10 mg Documented by: Non-Formulary Medication (Acetaminophen) 1,000 mg PO Q6HR PRN PRN Reason: Pain Non-Formulary Medication (Lutein/Minerals/Vit A,C & E) 1 tab PO DAILY [facility] Non-Formulary Medication (Ubidecarenone [Co Q-10]) 50 mg PO DAILY [facility] Potassium Chloride (Klor-Con M20) 40 meq PO ONETIME ONE Stop: 06/22/20 17:31 Last Admin: 06/22/20 17:29 Dose: 40 meq Documented by: - Exam Quality Assessment: Supplemental Oxygen General: Alert, Oriented HEENT: Pupils Equal, Mucous Membr. Moist/Short Neck: Supple Lungs: Normal Respiratory Effort, Rales (Bibasilar) Cardiovascular: Regular Rate, Regular Rhythm GI/Abdominal Exam: Normal Bowel Sounds, Soft, Non-Tender, No Organomegaly, No Distention, No Abnormal Bruit, No Mass Extremities: Normal Inspection, No Pedal Edema, Normal Capillary Refill Skin: Warm, Dry, Intact Neurological: No New Focal Deficit Psy/Mental Status: Alert, Normal Affect, Normal Mood Sepsis Event Note - Evaluation Sepsis Screening Result: No Definite Risk - Focused Exam Vital Signs: Vital Signs Temp Pulse Resp BP Pulse Ox Pulse Ox 06/23/20 06:10 91 L 06/23/20 03:03 97.9 F 83 16 122/59 L 88 L 06/22/20 23:05 98.1 F 79 16 128/99 H 90 L 06/22/20 20:58 93 123/60 06/22/20 20:57 93 123/60 94 L - Problem List & Annotations (1) Acute CHF (congestive heart failure) SNOMED Code(s): 35689637 Code(s): I50.9 - HEART FAILURE, UNSPECIFIED Status: Acute Current Visit: Yes Qualifiers: Heart failure type: unspecified Qualified Code(s): I50.9 - Heart failure, unspecified (2) UTI (urinary tract infection) SNOMED Code(s): 56455571 Code(s): N39.0 - URINARY TRACT INFECTION, SITE NOT SPECIFIED Status: Acute Current Visit: Yes Qualifiers: Urinary tract infection type: acute cystitis Hematuria presence: with hematuria Qualified Code(s): N30.01 - Acute cystitis with hematuria (3) Leukocytosis SNOMED Code(s): 171139242, 866235409 Code(s): D72.829 - ELEVATED WHITE BLOOD CELL COUNT, UNSPECIFIED Status: Acute Current Visit: No Qualifiers: Leukocytosis type: unspecified Qualified Code(s): D72.829 - Elevated white blood cell count, unspecified (4) Kidney failure SNOMED Code(s): 01144020 Code(s): N19 - UNSPECIFIED KIDNEY FAILURE Status: Acute Current Visit: Yes - Problem List Review Problem List Initiated/Reviewed/Updated: Yes - My Orders Last 24 Hours: My Active Orders 06/22/20 09:00 Furosemide [Lasix] 40 mg IVPUSH DAILY 06/22/20 11:00 Enoxaparin [Lovenox] 30 mg SUBCUT DAILY - Plan Plan:: This is an 89 yo elderly white female with past medical hx/o past medical hx/o Impaired Vision/Hearing, PRADEEP, HTN, HLD, HF with Preserved EF, Hx/o CA, S/p Pacemaker Placement, CAD, GERD, CKD Stage 2-3, DJD, CTS, OA, Apodaca's Palsy, Eczema, Former Smoker and Depression who comes [facility] use [facility] evaluation 3 day hx/o shortness of breath admitted for acute congestive heart failure. 06/21/2020 Assessment: Acute: Acute on chronic chf with preserved ef Elevated proBNP level of 6980 Elevated D-dimer of 1.25 Hypoxia on RA, sting at 84%, now on 2L NC * Has a hx/o chf with preserved ef * She is not on salt/fluid restrictions * Unknown last 2D echo * Her chest rattles according to her * No peripheral signs of volume overload * Plan: heart failure regimen-diuretic, salt/fluid restriction, 2d echo in AM, daily weight check and strict Is/Os UTI Leukocytosis with WBC of 14.38 and Neutrophils of 81% Macrocytic Hypochromic Anemia with Hgb of 10.9 Elevated Ferritin of 260 and CRP of 22.8 * Wears disposable brief overnight due to frequent urination (takes lasix at night not during the day) * She sits on it if diaper is wet until morning; informed patient taking her lasix during the day might be a better option * Elevated WBC is due to urinary tract infection * IV Rocephin 1 gram daily * Pending Urine Cx/Sx * Carries a hx/o CKD stage 2-3 * No report of bleeding or melena * We will monitor Hyperglycemia * Carries no hx/o DM or Glucose Intolerance * Likely from stress * We will monitor Hypoalbuminemia * Albumin of 3.2 * Dietary consult for low protein state Chronic: mpaired Vision/Hearing, PRADEEP, HTN, HLD, HF with Preserved EF, Hx/o CA, S/p Pacemaker Placement, CAD, GERD, CKD Stage 2-3, DJD, CTS, OA, Apodaca's Palsy, Eczema, Former Smoker and Depression Plan: Admit to [facility]. Routine AM labs. Thyroid and Vit D level. ProBNP level. 2D echo in AM. AHA diet. Salt/fluid restrictions. PT/OT to assess and treat. DVT/Gi prophylaxis. Additional orders as above. Code status is DNR. 06/22/2020 Patient has had a 3 pound weight loss. Received 1 dose of Lasix 40 mg IV in the emergency department yesterday. She continues on 1 L of nasal cannula O2 and oxygen saturations are still in the mid 90s. Pressure continues to be adequate with diuresis. CBC does not demonstrate a hemoconcentration yet with her hemoglobin actually dropping 0.8-10.1. WBCs have decreased to 10.25 from 14.38. Electrolytes are still good with potassium of 3.5, but that is down from 4.5 just yesterday. This will need supplementation. Kidney function continues to be poor and it is likely she has chronic renal insufficiency stage III. Creatinine is 1.4 with an estimated GFR of 36. C-reactive protein has come down to 20.9, but proBNP is up from 6980-10,259. This demonstrates the difficulty of trending proBNP especially in patients with kidney disease. TSH and free T4 are normal as well as vitamin D. Temperature has continued to be normal and respiratory rate is also normal at 16. She is on ceftriaxone 1 g daily and cultures are pending. Blood sugar overnight showed a glucose of 100. She had one episode of elevated blood sugar yesterday. Likely secondary to stress. Plan * Lasix 40 mg IV this morning and review afternoon urine output to see if this gives adequate response. * Continue to follow blood pressure, oxygen saturation, daily weights, and I's and O's. * Fluid restriction of 1800 mL a day * Check hemoglobin A1c * Give K. Dur 40 mEq x 1 * Recheck CBC, CMP, magnesium in the morning * Continue Rocephin and await blood cultures * Start Lovenox for VTE prophylaxis * Await echocardiogram results 06/23/2020 Patient continues to feel better. She did have a weight gain yet she also had a negative fluid balance overnight. Patient also is on less O2 making the weight gain nonsensical. She received Lasix 40 mg IV yesterday morning and 20 in the afternoon. Reportedly from her daughter that she has a very poor heart function. We do not have the echocardiogram results yet to evaluate. Based on bedside observation of the ultrasound does appear that she has a poor left ventricular function globally. BNP did drop to 6246. She continues on ceftriaxone 1 g daily for her urinary tract infection. Culture results have not changed overnight and the continue to show gram-negative rods with 90,000 100,000 CFU per milliliter. White count has returned to normal at 9.72. Plan * Continue Lasix 40 mg IV this morning and will increase to 40 mg IV this afternoon. * Continue fluid restriction * Continue close following of vital signs, daily weights, and I's and O's * Hemoglobin A1c is 6.1 * Continue following electrolytes daily * Awaiting blood cultures and continue Rocephin * Anticipate discharge tomorrow or the next day * Awaiting echocardiogram results
--- NOTE | 2020-06-23 08:24 | CR ---
Chest: Portable view of the chest was obtained. Comparison: Prior chest x-ray of 06/21/20. Heart is enlarged. Pulmonary vessels are increased which appears more prominent than on prior study. AICD is present. Previous sternotomy is noted. Bony structures are grossly intact. Impression: 1. Findings compatible with continued CHF with slight increased pulmonary congestion from previous study. Diagnostic code #3
[2020-06-23] MEDS: Aspirin 81 MG Tab.Chew PO SCH ×3 (09:19→21:49)
[2020-06-23] MEDS: Calcium Carbonate/Vitamin D3 600 MG-200 Units Tab PO SCH (09:19)
[2020-06-23] MEDS: Carvedilol 12.5 MG Tab PO SCH ×2 (09:20→21:48)
[2020-06-23] MEDS: Cyanocobalamin (Vitamin B12) 1,000 MCG Tab PO SCH (09:20)
[2020-06-23] MEDS: Pantoprazole 40 MG Tab.CR PO SCH (09:21)
[2020-06-23] MEDS: Multivitamins with Minerals/Folic Acid/Lutein/Zeaxanth Tab PO SCH (09:21)
[2020-06-23] MEDS: Saccharomyces Boulardii (Probiotic) 250 MG Cap PO SCH (09:21)
[2020-06-23] MEDS: Ascorbic Acid 500 MG Tab PO SCH (09:21)
[2020-06-23] MEDS: Allopurinol 300 MG Tab PO SCH (09:21)
[2020-06-23] MEDS: Rosuvastatin 10 MG Tab PO SCH (09:22)
[2020-06-23] MEDS: Enoxaparin 30 MG/0.3 ML Syringe SUBCUT SCH (09:23)
[2020-06-23] MEDS: Sertraline 50 MG Tab PO SCH (09:23)
[2020-06-23] MEDS: Furosemide 40 MG/4 ML VIAL IVPUSH SCH (09:24)
[2020-06-23] MEDS: Fluticasone Propionate Nasal Spray 16 GM Bottle NASBOTH SCH ×2 (09:24→21:52)
[2020-06-23] MEDS ORDERED: Furosemide 20 MG/2 ML VIAL IVPUSH ONE (15:39)
[2020-06-23] MEDS: Acetaminophen 325 MG Tab PO PRN (15:44)
[2020-06-23] MEDS: cefTRIAXone 1 GM in Sodium Chloride 0.9% 100 ML IV SCH (18:41)
[2020-06-24] MEDS: Enoxaparin 30 MG/0.3 ML Syringe SUBCUT SCH (08:20)
[2020-06-24] MEDS: Aspirin 81 MG Tab.Chew PO SCH ×2 (08:21→20:02)
[2020-06-24] MEDS: Rosuvastatin 10 MG Tab PO SCH (08:21)
[2020-06-24] MEDS: Ascorbic Acid 500 MG Tab PO SCH (08:21)
[2020-06-24] MEDS: Carvedilol 12.5 MG Tab PO SCH ×2 (08:21→20:02)
[2020-06-24] MEDS: Saccharomyces Boulardii (Probiotic) 250 MG Cap PO SCH (08:21)
[2020-06-24] MEDS: Calcium Carbonate/Vitamin D3 600 MG-200 Units Tab PO SCH (08:21)
[2020-06-24] MEDS: Pantoprazole 40 MG Tab.CR PO SCH (08:22)
[2020-06-24] MEDS: Multivitamins with Minerals/Folic Acid/Lutein/Zeaxanth Tab PO SCH (08:22)
[2020-06-24] MEDS: Sertraline 50 MG Tab PO SCH (08:22)
[2020-06-24] MEDS: Cyanocobalamin (Vitamin B12) 1,000 MCG Tab PO SCH (08:22)
[2020-06-24] MEDS: Allopurinol 300 MG Tab PO SCH (08:22)
[2020-06-24] MEDS: Furosemide 40 MG/4 ML VIAL IVPUSH SCH (08:22)
[2020-06-24] MEDS: Fluticasone Propionate Nasal Spray 16 GM Bottle NASBOTH SCH ×2 (08:23→20:03)
[2020-06-24] MEDS ORDERED: Loratadine 10 MG Tab PO SCH (09:00)
--- NOTE | 2020-06-24 13:58 | PCM.PN ---
- General Info Date of Service: 06/24/20 Admission Dx/Problem (Free Text): Admission Diagnosis/Problem Admission Diagnosis/Problem CHF, Congestive heart failure Subjective Update: Patient states that she is feeling well. She continues to get short of breath with movement of activity, but she is improving. Continues on 1 L nasal cannula Functional Status: Reports: Pain Controlled - Review of Systems General: Reports: No Symptoms HEENT: Reports: No Symptoms Pulmonary: Reports: No Symptoms Cardiovascular: Reports: No Symptoms Gastrointestinal: Reports: No Symptoms Musculoskeletal: Reports: No Symptoms Neurological: Reports: No Symptoms Psychiatric: Reports: No Symptoms - Patient Data Vitals - Most Recent: Last Vital Signs Temp 97.9 F 06/24/20 11:45 Pulse 78 06/24/20 11:45 Resp 14 06/24/20 11:45 BP 108/67 06/24/20 11:45 Pulse Ox 91 L 06/24/20 11:45 Weight - Most Recent: 133 lb 11.2 oz I&O - Last 24 Hours: Intake & Output 06/23/20 06/24/20 06/24/20 22:59 06:59 14:59 Intake Total 660 400 300 Output Total 900 1050 Balance -240 -650 300 Lab Results Last 24 Hours: Laboratory Results - last 24 hr 06/24/20 06/24/20 06/24/20 Range/Units 05:51 05:51 05:57 Sodium 144 (136-145) mEq/L Potassium 3.9 (3.5-5.1) mEq/L Chloride 106 (98-107) mEq/L Carbon Dioxide 24 (21-32) mEq/L Anion Gap 17.9 H (5-15) BUN 32 H (7-18) mg/dL Creatinine 1.5 H (0.55-1.02) mg/dL Est Cr Clr Drug Dosing 20.90 mL/min Estimated GFR (MDRD) 33 (>60) mL/min BUN/Creatinine Ratio 21.3 H (14-18) Glucose 95 (83-115) mg/dL Calcium 9.2 (8.5-10.1) mg/dL C-Reactive Protein 11.7 H* (<1.0) mg/dL NT-Pro-B Natriuret Pep 3631 H (0-450) pg/mL Chris Results Last 24 Hours: Microbiology 06/21/20 19:20 Aerobic Blood Culture - Preliminary Blood - Venous - Lab Draw NO GROWTH AFTER 2 DAYS Anaerobic Blood Culture - Preliminary NO GROWTH AFTER 2 DAYS 06/21/20 19:25 Aerobic Blood Culture - Preliminary Blood - Venous NO GROWTH AFTER 2 DAYS Anaerobic Blood Culture - Preliminary NO GROWTH AFTER 2 DAYS 06/21/20 17:55 Urine Culture - Final Urine, Clean Catch Escherichia Coli Med Orders - Current: Current Medications Acetaminophen (Tylenol) 650 mg PO Q4H PRN PRN Reason: Pain (Mild 1-3)/fever Last Admin: 06/23/20 15:44 Dose: 650 mg Documented by: Hydrocodone Bitart/Acetaminophen ([place] 325-5 Mg) 1 tab PO Q4H PRN PRN Reason: Pain (moderate 4-6) Albuterol/Ipratropium (Duoneb 3.0-0.5 Mg/3 Ml) 3 ml NEB Q4H PRN PRN Reason: Shortness Of Breath/wheezing Allopurinol (Zyloprim) 300 mg PO DAILY [facility] Last Admin: 06/24/20 08:22 Dose: 300 mg Documented by: Ascorbic Acid (Vitamin C) 500 mg PO DAILY [facility] Last Admin: 06/24/20 08:21 Dose: 500 mg Documented by: Aspirin (Aspirin) 81 mg PO BID [facility] Last Admin: 06/24/20 08:21 Dose: 81 mg Documented by: Calcium Carbonate (Calcium Carbonate/Vitamin D 600 Mg-200 Unit) 1 tab PO DAILY [facility] Last Admin: 06/24/20 08:21 Dose: 1 tab Documented by: Calcium Carbonate/Glycine (Tums) 1,000 mg PO ASDIRECTED PRN PRN Reason: Indigestion Carvedilol (Coreg) 12.5 mg PO BID [facility] Last Admin: 06/24/20 08:21 Dose: 12.5 mg Documented by: Cephalexin (Keflex) 500 mg PO Q12H [facility] Cyanocobalamin (Vitamin B12) 1,000 mcg PO DAILY [facility] Last Admin: 06/24/20 08:22 Dose: 1,000 mcg Documented by: Enoxaparin Sodium (Lovenox) 30 mg SUBCUT DAILY [facility] Last Admin: 06/24/20 08:20 Dose: 30 mg Documented by: Fluticasone Propionate (Flonase) 0 gm NASBOTH BID [facility] Last Admin: 06/24/20 08:23 Dose: 2 sprays Documented by: Furosemide (Lasix) 40 mg IVPUSH DAILY [facility] Last Admin: 06/24/20 08:22 Dose: 40 mg Documented by: Furosemide (Lasix) 20 mg IVPUSH ONETIME ONE Stop: 06/24/20 15:01 Promethazine HCl 6.25 mg/ (Sodium Chloride) 50.25 mls @ 100 mls/hr IV Q6H PRN PRN Reason: Nausea/Vomiting Loratadine (Claritin) 10 mg PO Q48H [facility] Last Admin: 06/24/20 08:21 Dose: 10 mg Documented by: Neomycin/Polymyxin/Bacitracin (Neosporin Oint) 1 gm TOP ASDIRECTED PRN PRN Reason: abrasions Ondansetron HCl (Zofran) 4 mg IV Q6H PRN PRN Reason: Nausea/Vomiting Pantoprazole Sodium (Protonix) 40 mg PO DAILY [facility] Last Admin: 06/24/20 08:22 Dose: 40 mg Documented by: Polyethylene Glycol (Miralax) 17 gm PO DAILY PRN PRN Reason: Constipation Rosuvastatin Calcium (Crestor) 5 mg PO DAILY [facility] Last Admin: 06/24/20 08:21 Dose: 5 mg Documented by: Saccharomyces Boulardii (Florastor) 250 mg PO DAILY [facility] Last Admin: 06/24/20 08:21 Dose: 250 mg Documented by: Senna/Docusate Sodium (Senna Plus) 1 tab PO BID PRN PRN Reason: Constipation Sertraline HCl (Zoloft) 75 mg PO DAILY [facility] Last Admin: 06/24/20 08:22 Dose: 75 mg Documented by: Sodium Chloride (Saline Flush) 10 ml FLUSH ASDIRECTED PRN PRN Reason: Keep Vein Open Last Admin: 06/21/20 18:11 Dose: 10 ml Documented by: Sodium Chloride (Saline Flush) 10 ml FLUSH ASDIRECTED PRN PRN Reason: Keep Vein Open Vit A/Vit C/Vit E/Selen/Cu/Zn/Lutei (Icaps Mv) 1 tab PO DAILY [facility] Last Admin: 06/24/20 08:22 Dose: 1 tab Documented by: Discontinued Medications Aspirin (Aspirin) 162 mg PO BID [facility] Last Admin: 06/23/20 10:24 Dose: Not Given Documented by: Fluticasone Propionate (Flonase) 0 gm NASBOTH DAILY [facility] Last Admin: 06/22/20 09:59 Dose: 1 spray Documented by: Furosemide (Lasix) 40 mg IVPUSH NOW ONE Stop: 06/21/20 19:09 Last Admin: 06/21/20 19:46 Dose: 40 mg Documented by: Furosemide (Lasix) 40 mg PO DAILY [facility] Furosemide (Lasix) 20 mg IVPUSH ONETIME ONE Stop: 06/22/20 17:23 Last Admin: 06/22/20 17:56 Dose: 20 mg Documented by: Furosemide (Lasix) 20 mg IVPUSH ONETIME ONE Stop: 06/23/20 15:40 Last Admin: 06/23/20 15:48 Dose: 20 mg Documented by: Ceftriaxone Sodium 2 gm/ (Sodium Chloride) 100 mls @ 200 mls/hr IV ONETIME ONE Stop: 06/21/20 19:51 Last Admin: 06/21/20 19:46 Dose: 200 mls/hr Documented by: Ceftriaxone Sodium 1 gm/ (Sodium Chloride) 100 mls @ 200 mls/hr IV Q24H [place] Stop: 06/25/20 19:31 Ceftriaxone Sodium 1 gm/ (Sodium Chloride) 100 mls @ 200 mls/hr IV Q24H [facility] Last Admin: 06/23/20 18:41 Dose: 200 mls/hr Documented by: Loratadine (Claritin) 10 mg PO DAILY [facility] Last Admin: 06/22/20 09:51 Dose: 10 mg Documented by: Non-Formulary Medication (Acetaminophen) 1,000 mg PO Q6HR PRN PRN Reason: Pain Non-Formulary Medication (Lutein/Minerals/Vit A,C & E) 1 tab PO DAILY [facility] Non-Formulary Medication (Ubidecarenone [Co Q-10]) 50 mg PO DAILY [facility] Potassium Chloride (Klor-Con M20) 40 meq PO ONETIME ONE Stop: 06/22/20 17:31 Last Admin: 06/22/20 17:29 Dose: 40 meq Documented by: - Exam Quality Assessment: Supplemental Oxygen General: Alert, Oriented HEENT: Pupils Equal, Mucous Membr. Moist/[place] Neck: Supple Lungs: Normal Respiratory Effort, Rales Cardiovascular: Regular Rate, Regular Rhythm GI/Abdominal Exam: Normal Bowel Sounds, Soft, Non-Tender, No Organomegaly, No Distention, No Abnormal Bruit, No Mass Extremities: Normal Inspection, Normal Range of Motion, Non-Tender, No Pedal Edema, Normal Capillary Refill Skin: Warm, Dry, Intact Psy/Mental Status: Alert, Normal Affect, Normal Mood Sepsis Event Note - Evaluation Sepsis Screening Result: No Definite Risk - Focused Exam Vital Signs: Vital Signs Temp Pulse Resp BP Pulse Ox 06/24/20 11:45 97.9 F 78 14 108/67 91 L 06/24/20 11:21 78 92 L 06/24/20 08:21 88 143/67 H 06/24/20 07:11 98.1 F 88 16 143/67 H 92 L 06/24/20 03:49 98.2 F 85 14 116/57 L 92 L - Problem List & Annotations (1) Acute CHF (congestive heart failure) SNOMED Code(s): 45719877 Code(s): I50.9 - HEART FAILURE, UNSPECIFIED Status: Acute Current Visit: Yes Qualifiers: Heart failure type: unspecified Qualified Code(s): I50.9 - Heart failure, unspecified (2) UTI (urinary tract infection) SNOMED Code(s): 76718716 Code(s): N39.0 - URINARY TRACT INFECTION, SITE NOT SPECIFIED Status: Acute Current Visit: Yes Qualifiers: Urinary tract infection type: acute cystitis Hematuria presence: with hematuria Qualified Code(s): N30.01 - Acute cystitis with hematuria (3) Leukocytosis SNOMED Code(s): 652339065, 609186562 Code(s): D72.829 - ELEVATED WHITE BLOOD CELL COUNT, UNSPECIFIED Status: Acute Current Visit: No Qualifiers: Leukocytosis type: unspecified Qualified Code(s): D72.829 - Elevated white blood cell count, unspecified (4) Kidney failure SNOMED Code(s): 65792632 Code(s): N19 - UNSPECIFIED KIDNEY FAILURE Status: Acute Current Visit: Yes - Problem List Review Problem List Initiated/Reviewed/Updated: Yes - My Orders Last 24 Hours: My Active Orders 06/24/20 15:00 Furosemide [Lasix] 20 mg IVPUSH ONETIME ONE 06/24/20 19:00 cephALEXin [Keflex] 500 mg PO Q12H - Plan Plan:: This is an 89 yo elderly white female with past medical hx/o past medical hx/o Impaired Vision/Hearing, PRADEEP, HTN, HLD, HF with Preserved EF, Hx/o NC, S/p Pacemaker Placement, CAD, GERD, CKD Stage 2-3, DJD, CTS, OA, Apodaca's Palsy, Eczema, Former Smoker and Depression who comes to use from [facility] from evaluation 3 day hx/o shortness of breath admitted for acute congestive heart failure. 06/21/2020 Assessment: Acute: Acute on chronic chf with preserved ef Elevated proBNP level of 6980 Elevated D-dimer of 1.25 Hypoxia on RA, sting at 84%, now on 2L NC * Has a hx/o chf with preserved ef * She is not on salt/fluid restrictions * Unknown last 2D echo * Her chest rattles according to her * No peripheral signs of volume overload * Plan: heart failure regimen-diuretic, salt/fluid restriction, 2d echo in AM, daily weight check and strict Is/Os UTI Leukocytosis with WBC of 14.38 and Neutrophils of 81% Macrocytic Hypochromic Anemia with Hgb of 10.9 Elevated Ferritin of 260 and CRP of 22.8 * Wears disposable brief overnight due to frequent urination (takes lasix at night not during the day) * She sits on it if diaper is wet until morning; informed patient taking her lasix during the day might be a better option * Elevated WBC is due to urinary tract infection * IV Rocephin 1 gram daily * Pending Urine Cx/Sx * Carries a hx/o CKD stage 2-3 * No report of bleeding or melena * We will monitor Hyperglycemia * Carries no hx/o DM or Glucose Intolerance * Likely from stress * We will monitor Hypoalbuminemia * Albumin of 3.2 * Dietary consult for low protein state Chronic: mpaired Vision/Hearing, PRADEEP, HTN, HLD, HF with Preserved EF, Hx/o NC, S/p Pacemaker Placement, CAD, GERD, CKD Stage 2-3, DJD, CTS, OA, Apodaca's Palsy, Eczema, Former Smoker and Depression Plan: Admit to [facility]. Routine AM labs. Thyroid and Vit D level. ProBNP level. 2D echo in AM. AHA diet. Salt/fluid restrictions. PT/OT to assess and treat. DVT/Gi prophylaxis. Additional orders as above. Code status is DNR. 06/22/2020 Patient has had a 3 pound weight loss. Received 1 dose of Lasix 40 mg IV in the emergency department yesterday. She continues on 1 L of nasal cannula O2 and oxygen saturations are still in the mid 90s. Pressure continues to be adequate with diuresis. CBC does not demonstrate a hemoconcentration yet with her hemoglobin actually dropping 0.8-10.1. WBCs have decreased to 10.25 from 14.38. Electrolytes are still good with potassium of 3.5, but that is down from 4.5 just yesterday. This will need supplementation. Kidney function continues to be poor and it is likely she has chronic renal insufficiency stage III. Creatinine is 1.4 with an estimated GFR of 36. C-reactive protein has come down to 20.9, but proBNP is up from 6980-10,259. This demonstrates the difficulty of trending proBNP especially in patients with kidney disease. TSH and free T4 are normal as well as vitamin D. Temperature has continued to be normal and respiratory rate is also normal at 16. She is on ceftriaxone 1 g daily and cultures are pending. Blood sugar overnight showed a glucose of 100. She had one episode of elevated blood sugar yesterday. Likely secondary to stress. Plan * Lasix 40 mg IV this morning and review afternoon urine output to see if this gives adequate response. * Continue to follow blood pressure, oxygen saturation, daily weights, and I's and O's. * Fluid restriction of 1800 mL a day * Check hemoglobin A1c * Give K. Dur 40 mEq x 1 * Recheck CBC, CMP, magnesium in the morning * Continue Rocephin and await blood cultures * Start Lovenox for VTE prophylaxis * Await echocardiogram results 06/23/2020 Patient continues to feel better. She did have a weight gain yet she also had a negative fluid balance overnight. Patient also is on less O2 making the weight gain nonsensical. She received Lasix 40 mg IV yesterday morning and 20 in the afternoon. Reportedly from her daughter that she has a very poor heart function. We do not have the echocardiogram results yet to evaluate. Based on bedside observation of the ultrasound does appear that she has a poor left ventricular function globally. BNP did drop to 6246. She continues on ceftriaxone 1 g daily for her urinary tract infection. Culture results have not changed overnight and the continue to show gram-negative rods with 90,000 100,000 CFU per milliliter. White count has returned to normal at 9.72. Plan * Continue Lasix 40 mg IV this morning and will increase to 40 mg IV this afternoon. * Continue fluid restriction * Continue close following of vital signs, daily weights, and I's and O's * Hemoglobin A1c is 6.1 * Continue following electrolytes daily * Awaiting blood cultures and continue Rocephin * Anticipate discharge tomorrow or the next day * Awaiting echocardiogram results 06/24/2020 Patient continues to improve. She has had a 2 pound weight loss overnight and a total of 5 pound weight loss since admission. She has had a negative fluid balance of 2600 mL. Echocardiogram showed a severe left ventricular dysfunction and global left ventricular systolic function. Ejection fraction 20 to 25%. Electrolytes today were reassuring with creatinine 1.5 which is stable and potassium of 3.9. Urine results showed E. coli that was pansensitive. Plan * Continue Lasix 40 mg this morning and only 20 mg this afternoon IV * Continue fluid restriction * Switch to Keflex * Blood cultures continue to be negative after 48 hours * Plan discharge tomorrow
[2020-06-24] MEDS ORDERED: Furosemide 20 MG/2 ML VIAL IVPUSH ONE ×2 (15:00)
[2020-06-24] MEDS ORDERED: Furosemide 40 MG/4 ML VIAL IVPUSH ONE (15:00)
[2020-06-24] MEDS: Cephalexin 500 MG Cap PO SCH (18:39)
[2020-06-24] MEDS: Acetaminophen 325 MG Tab PO PRN (20:02)
[2020-06-25] MEDS: Cephalexin 500 MG Cap PO SCH (06:15)
[2020-06-25 07:53] VITALS: PULSE 91
[2020-06-25] MEDS: Cyanocobalamin (Vitamin B12) 1,000 MCG Tab PO SCH (08:48)
[2020-06-25] MEDS: Multivitamins with Minerals/Folic Acid/Lutein/Zeaxanth Tab PO SCH (08:48)
[2020-06-25] MEDS: Aspirin 81 MG Tab.Chew PO SCH (08:48)
[2020-06-25] MEDS: Sertraline 50 MG Tab PO SCH (08:49)
[2020-06-25] MEDS: Calcium Carbonate/Vitamin D3 600 MG-200 Units Tab PO SCH (08:50)
[2020-06-25] MEDS: Rosuvastatin 10 MG Tab PO SCH (08:50)
[2020-06-25] MEDS: Allopurinol 300 MG Tab PO SCH (08:51)
[2020-06-25] MEDS: Pantoprazole 40 MG Tab.CR PO SCH (08:51)
[2020-06-25] MEDS: Ascorbic Acid 500 MG Tab PO SCH (08:51)
[2020-06-25] MEDS: Saccharomyces Boulardii (Probiotic) 250 MG Cap PO SCH (08:51)
[2020-06-25] MEDS: Fluticasone Propionate Nasal Spray 16 GM Bottle NASBOTH SCH (08:52)
[2020-06-25] MEDS: Enoxaparin 30 MG/0.3 ML Syringe SUBCUT SCH (08:52)
[2020-06-25] MEDS: Furosemide 40 MG/4 ML VIAL IVPUSH SCH (08:54)
[2020-06-25] MEDS: Carvedilol 12.5 MG Tab PO SCH (08:55)
[2020-06-25 08:57] VITALS: BP 147/73
--- NOTE | 2020-06-25 10:53 | PCM.DCSUM1 ---
Discharge Summary - Hospital Course HPI Initial Comments: This is an 89 yo elderly white female with past medical hx/o past medical hx/o Impaired Vision/Hearing, PRADEEP, HTN, HLD, HF with Preserved EF, Hx/o RI, S/p Pacemaker Placement, CAD, GERD, CKD Stage 2-3, DJD, CTS, OA, Apodaca's Palsy, Eczema, Former Smoker and Depression who comes to us from [facility] from evaluation of 3-day hx/o shortness of breath. Her chief complaint is associated with subjective fever of 100.6F. She carries no hx/o COVID-19 infection. She states she gets tested 3 times a week. Her last test was this morning but it was a send out. She did receive her Moderna shot 1/, 2 weeks ago. She denies having cough or heart palpitations. No GI complaints. She reports frequent urination. Her initial work up shows a CBC remarkable for WBC of 14.83, Hgb of 10.9, MCV of 99.1, MCHC of 31.8, and Neutrophils of 81%. Her coagulation study is significant for D-dimer of 1.25. Her ABG shows a pH of 7.47, pCO2 of 24, pO2 of 47, HCO3 of 17.3 and O2 sat of 84% on RA. Her chemistry is significant for AG of 19.5, BUN of 28, Cr of 1.5, BS of 117, Ferritin of 260, Alk Phos of 121, CRP of 22.8, proBNP of 6980, and Albumin of 3.2. Her UA is suggestive of UTI. Her rapid covid and influenza tests are both negative. Her chest x-ray shows interstitial edema. Patient is coming in for further treatment of acute congestive heart failure and UTI. This is an 89 yo elderly white female with past medical hx/o past medical hx/o Impaired Vision/Hearing, PRADEEP, HTN, HLD, HF with Preserved EF, Hx/o RI, S/p Pacemaker Placement, CAD, GERD, CKD Stage 2-3, DJD, CTS, OA, Apodaca's Palsy, Eczema, Former Smoker and Depression who comes to use from [facility] from sivan luation 3 day hx/o shortness of breath admitted for acute congestive heart failure. Assessment: Acute: Acute on chronic chf with preserved ef Elevated proBNP level of 6980 Elevated D-dimer of 1.25 Hypoxia on RA, sting at 84%, now on 2L NC * Has a hx/o chf with preserved ef * She is not on salt/fluid restrictions * Unknown last 2D echo * Her chest rattles according to her * No peripheral signs of volume overload * Plan: heart failure regimen-diuretic, salt/fluid restriction, 2d echo in AM, daily weight check and strict Is/Os UTI Leukocytosis with WBC of 14.38 and Neutrophils of 81% Macrocytic Hypochromic Anemia with Hgb of 10.9 Elevated Ferritin of 260 and CRP of 22.8 * Wears disposable brief overnight due to frequent urination (takes lasix at night not during the day) * She sits on it if diaper is wet until morning; informed patient taking her lasix during the day might be a better option * Elevated WBC is due to urinary tract infection * IV Rocephin 1 gram daily * Pending Urine Cx/Sx * Carries a hx/o CKD stage 2-3 * No report of bleeding or melena * We will monitor Hyperglycemia * Carries no hx/o DM or Glucose Intolerance * Likely from stress * We will monitor Hypoalbuminemia * Albumin of 3.2 * Dietary consult for low protein state Chronic: Impaired Vision/Hearing, PRADEEP, HTN, HLD, HF with Preserved EF, Hx/o RI, S/p Pacemaker Placement, CAD, GERD, CKD Stage 2-3, DJD, CTS, OA, Apodaca's Palsy, E czema, Former Smoker and Depression Plan: Admit to [facility]. Routine AM labs. Thyroid and Vit D level. ProBNP level. 2D echo in AM. AHA diet. Salt/fluid restrictions. PT/OT to assess and treat. DVT/GI prophylaxis. Additional orders as above. Code status is DNR. Diagnosis: Stroke: No - Discharge Data Discharge Date: 06/25/20 Discharge Disposition: Home, Self-Care 01 Condition: Good - Referral to Home Health Primary Care Physician: Haily Godinez MD - Discharge Diagnosis/Problem(s) (1) Reduced ejection fraction concurrent with and due to chronic heart failure SNOMED Code(s): 081627574, 974915196 ICD Code: I50.22 - CHRONIC SYSTOLIC (CONGESTIVE) HEART FAILURE Status: Acute Current Visit: Yes (2) Acute CHF (congestive heart failure) SNOMED Code(s): 63463731 ICD Code: I50.9 - HEART FAILURE, UNSPECIFIED Status: Acute Current Visit: Yes Qualifiers: Heart failure type: unspecified Qualified Code(s): I50.9 - Heart failure, unspecified (3) Kidney failure SNOMED Code(s): 71869090 ICD Code: N19 - UNSPECIFIED KIDNEY FAILURE Status: Acute Current Visit: Yes (4) UTI (urinary tract infection) SNOMED Code(s): 79619731 ICD Code: N39.0 - URINARY TRACT INFECTION, SITE NOT SPECIFIED Status: Acute Current Visit: Yes Qualifiers: Urinary tract infection type: acute cystitis Hematuria presence: with hematuria Qualified Code(s): N30.01 - Acute cystitis with hematuria - Patient Summary/Data Consults: Consultations 06/21/20 20:59 Consult to Case Management/Molding Line Operator [CONS] Routine Consult to Longwall Shearer Operator [CONS] Routine Consult to Spiritual Care [CONS] Routine OT Evaluation and Treatment [CONS] Routine PT Evaluation and Treatment [CONS] Routine Respiratory Care Assess and Treatment [CONS] Routine Hospital Course: 06/22/2020 Patient has had a 3 pound weight loss. Received 1 dose of Lasix 40 mg IV in the emergency department yesterday. She continues on 1 L of nasal cannula O2 and oxygen saturations are still in the mid 90s. Pressure continues to be adequate with diuresis. CBC does not demonstrate a hemoconcentration yet with her hemoglobin actually dropping 0.8-10.1. WBCs have decreased to 10.25 from 14.38. Electrolytes are still good with potassium of 3.5, but that is down from 4.5 just yesterday. This will need supplementation. Kidney function continues to be poor and it is likely she has chronic renal insufficiency stage III. Creatinine is 1.4 with an estimated GFR of 36. C-reactive protein has come down to 20.9, but proBNP is up from 6980-10,259. This demonstrates the difficulty of trending proBNP especially in patients with kidney disease. TSH and free T4 are normal as well as vitamin D. Temperature has continued to be normal and respiratory rate is also normal at 16. She is on ceftriaxone 1 g daily and cultures are pending. Blood sugar overnight showed a glucose of 100. She had one episode of elevated blood sugar yesterday. Likely secondary to stress. Plan * Lasix 40 mg IV this morning and review afternoon urine output to see if this gives adequate response. * Continue to follow blood pressure, oxygen saturation, daily weights, and I's and O's. * Fluid restriction of 1800 mL a day * Check hemoglobin A1c * Give K. Dur 40 mEq x 1 * Recheck CBC, CMP, magnesium in the morning * Continue Rocephin and await blood cultures * Start Lovenox for VTE prophylaxis * Await echocardiogram results 06/23/2020 Patient continues to feel better. She did have a weight gain yet she also had a negative fluid balance overnight. Patient also is on less O2 making the weight gain nonsensical. She received Lasix 40 mg IV yesterday morning and 20 in the afternoon. Reportedly from her daughter that she has a very poor heart function . We do not have the echocardiogram results yet to evaluate. Based on bedside observation of the ultrasound does appear that she has a poor left ventricular function globally. BNP did drop to 6246. She continues on ceftriaxone 1 g daily for her urinary tract infection. Culture results have not changed overnight and the continue to show gram-negative rods with 90,000 100,000 CFU per milliliter. White count has returned to normal at 9.72. Plan * Continue Lasix 40 mg IV this morning and will increase to 40 mg IV this afternoon. * Continue fluid restriction * Continue close following of vital signs, daily weights, and I's and O's * Hemoglobin A1c is 6.1 * Continue following electrolytes daily * Awaiting blood cultures and continue Rocephin * Anticipate discharge tomorrow or the next day * Awaiting echocardiogram results 06/24/2020 Patient continues to improve. She has had a 2 pound weight loss overnight and a total of 5 pound weight loss since admission. She has had a negative fluid balance of 2600 mL. Echocardiogram showed a severe left ventricular dysfunction and global left ventricular systolic function. Ejection fraction 20 to 25%. Electrolytes today were reassuring with creatinine 1.5 which is stable and potassium of 3.9. Urine results showed E. coli that was pansensitive. Plan * Continue Lasix 40 mg this morning and only 20 mg this afternoon IV * Continue fluid restriction * Switch to Keflex * Blood cultures continue to be negative after 48 hours * Plan discharge tomorrow 06/25/2020 Patient is continuing to have weight loss and negative fluid output. She is off of O2. Oxygen saturations did not drop below 88 overnight reportedly. She should have this followed up as an outpatient and likely needs a sleep study, but we will leave that for her primary care providers. You will be discharged on Lasix 40 mg p.o. twice daily and will increase it by 1 tab if she has an increase in weight of 2 to 3 pounds overnight and she will contact her primary care provider or ferryboat pilot. - Patient Instructions Diet: Heart Healthy Diet Activity: As Tolerated Driving: Do Not Drive Showering/Bathing: May Shower Notify Provider of: Fever, Swelling and Redness Other/Special Instructions: You have significantly reduced cardiac function with an ejection fraction of only 20 to 25% and global reduction of function of the heart. I am increasing your furosemide to 40 mg twice a day, but you need to do daily weights. If your weight goes up by more than 2 to 3 pounds without cause over 24 hours take an extra furosemide and speak with your doctor. Follow-up with your ferryboat pilot as soon as possible. - Discharge Plan *PRESCRIPTION DRUG MONITORING PROGRAM REVIEWED*: No *COPY OF PRESCRIPTION DRUG MONITORING REPORT IN PATIENT GERMAINE: No Prescriptions/Med Rec: cephALEXin [Keflex] 500 mg PO Q12H #6 cap Furosemide [Lasix] 40 mg PO BID #60 tab Home Medications: Home Meds Acetaminophen [Tylenol Extra Strength] 1,000 mg PO Q6HR PRN 04/01/15 [History] Aspirin 81 mg PO BID 04/01/15 [History] Calcium Carb/Vitamin D3/Vit K1 [Calcium + D Soft Chewable Tab] 600 mg PO DAILY 04/01/15 [History] Loratadine [Claritin] 10 mg PO DAILY 04/01/15 [History] Omeprazole [Prilosec] 20 mg PO DAILY PRN 04/01/15 [History] Rosuvastatin [Crestor] 5 mg PO DAILY 04/01/15 [History] Ubidecarenone [Co Q-10] 50 mg PO DAILY 04/01/15 [History] carvediloL [Coreg] 12.5 mg PO BID 04/01/15 [History] Flunisolide 2 spray ELI Q12H 08/25/15 [History] Ascorbic Acid [Vitamin C] 500 mg PO DAILY 03/26/18 [History] Furosemide 40 mg PO DAILY 03/26/18 [History] Lactobacillus Acidophilus [Probiotic] 1 cap PO DAILY 03/26/18 [History] Multivitamin [Poly-Vitamin] 1 tab PO DAILY 03/26/18 [History] Sertraline [Zoloft] 75 mg PO DAILY 03/26/18 [History] allopurinoL [Zyloprim] 300 mg PO DAILY 03/26/18 [History] Calcium Carbonate [Tums] 1,000 mg PO ASDIRECTED PRN 06/21/20 [History] Cyanocobalamin (Vitamin B-12) [Vitamin B-12] 100 mcg PO DAILY 06/21/20 [History] Lutein/Minerals/Vit A,C & E [Ocuvite] 1 tab PO DAILY 06/21/20 [History] Neomycin/Bacitracin/Polymyxinb [Antibiotic Ointment] 1 applic TOP ASDIRECTED PRN 06/21/20 [History] Furosemide [Lasix] 40 mg PO BID #60 tab 06/25/20 [Rx] cephALEXin [Keflex] 500 mg PO Q12H #6 cap 06/25/20 [Rx] Patient Handouts: Heart Failure, Self Care, [id number], Heart Failure, Diagnosis, [id number], Heart Failure Exacerbation, Heart Failure Eating Plan, Sepsis, Self Care, Adult Referrals: Haily Godinez MD [Primary Care Provider] - 07/02/20 9:00 am (Hospital follow-up appointment.) - Discharge Summary/Plan Comment DC Time >30 min.: Yes - General Info Date of Service: 06/25/20 Admission Dx/Problem (Free Text: Admission Diagnosis/Problem Admission Diagnosis/Problem CHF, Congestive heart failure Subjective Update: Doing well today. Appetite is good. Still some dyspnea on exertion. Functional Status: Reports: Pain Controlled - Review of Systems General: Reports: No Symptoms HEENT: Reports: No Symptoms Pulmonary: Reports: No Symptoms Cardiovascular: Reports: No Symptoms Gastrointestinal: Reports: No Symptoms Musculoskeletal: Reports: No Symptoms Neurological: Reports: No Symptoms Psychiatric: Reports: No Symptoms - Patient Data Vitals - Most Recent: Last Vital Signs Temp 98.1 F 06/25/20 03:44 Pulse 91 06/25/20 08:55 Resp 16 06/25/20 07:44 BP 147/73 H 06/25/20 08:55 Pulse Ox 92 L 06/25/20 07:44 Weight - Most Recent: 132 lb 4.8 oz I&O - Last 24 hours: Intake & Output 06/24/20 06/25/20 06/25/20 22:59 06:59 14:59 Intake Total 700 120 400 Output Total 925 900 Balance -225 -780 400 Lab Results - Last 24 hrs: Laboratory Results - last 24 hr 06/25/20 Range/Units 05:05 Sodium 144 (136-145) mEq/L Potassium 3.5 (3.5-5.1) mEq/L Chloride 104 (98-107) mEq/L Carbon Dioxide 27 (21-32) mEq/L Anion Gap 16.5 H (5-15) BUN 32 H (7-18) mg/dL Creatinine 1.4 H (0.55-1.02) mg/dL Est Cr Clr Drug Dosing 22.39 mL/min Estimated GFR (MDRD) 36 (>60) mL/min BUN/Creatinine Ratio 22.9 H (14-18) Glucose 91 (83-115) mg/dL Calcium 9.2 (8.5-10.1) mg/dL Magnesium 2.1 (1.8-2.4) mg/dl CODY Results - Last 24 hrs: Microbiology 06/21/20 19:20 Aerobic Blood Culture - Preliminary Blood - Venous - Lab Draw NO GROWTH AFTER 3 DAYS Anaerobic Blood Culture - Preliminary NO GROWTH AFTER 3 DAYS 06/21/20 19:25 Aerobic Blood Culture - Preliminary Blood - Venous NO GROWTH AFTER 3 DAYS Anaerobic Blood Culture - Preliminary NO GROWTH AFTER 3 DAYS Med Orders - Current: Current Medications Acetaminophen (Tylenol) 650 mg PO Q4H PRN PRN Reason: Pain (Mild 1-3)/fever Last Admin: 06/24/20 20:02 Dose: 650 mg Documented by: Hydrocodone Bitart/Acetaminophen (Wirt 325-5 Mg) 1 tab PO Q4H PRN PRN Reason: Pain (moderate 4-6) Albuterol/Ipratropium (Duoneb 3.0-0.5 Mg/3 Ml) 3 ml NEB Q4H PRN PRN Reason: Shortness Of Breath/wheezing Allopurinol (Zyloprim) 300 mg PO DAILY [facility] Last Admin: 06/25/20 08:51 Dose: 300 mg Documented by: Ascorbic Acid (Vitamin C) 500 mg PO DAILY [facility] Last Admin: 06/25/20 08:51 Dose: 500 mg Documented by: Aspirin (Aspirin) 81 mg PO BID [facility] Last Admin: 06/25/20 08:48 Dose: 81 mg Documented by: Calcium Carbonate (Calcium Carbonate/Vitamin D 600 Mg-200 Unit) 1 tab PO DAILY [facility] Last Admin: 06/25/20 08:50 Dose: 1 tab Documented by: Calcium Carbonate/Glycine (Tums) 1,000 mg PO ASDIRECTED PRN PRN Reason: Indigestion Carvedilol (Coreg) 12.5 mg PO BID [facility] Last Admin: 06/25/20 08:55 Dose: 12.5 mg Documented by: Cephalexin (Keflex) 500 mg PO Q12H [facility] Last Admin: 06/25/20 06:15 Dose: 500 mg Documented by: Cyanocobalamin (Vitamin B12) 1,000 mcg PO DAILY [facility] Last Admin: 06/25/20 08:48 Dose: 1,000 mcg Documented by: Enoxaparin Sodium (Lovenox) 30 mg SUBCUT DAILY [facility] Last Admin: 06/25/20 08:52 Dose: 30 mg Documented by: Fluticasone Propionate (Flonase) 0 gm NASBOTH BID [facility] Last Admin: 06/25/20 08:52 Dose: 2 sprays Documented by: Furosemide (Lasix) 40 mg IVPUSH DAILY [facility] Last Admin: 06/25/20 08:54 Dose: 40 mg Documented by: Promethazine HCl 6.25 mg/ (Sodium Chloride) 50.25 mls @ 100 mls/hr IV Q6H PRN PRN Reason: Nausea/Vomiting Loratadine (Claritin) 10 mg PO Q48H [facility] Last Admin: 06/24/20 08:21 Dose: 10 mg Documented by: Neomycin/Polymyxin/Bacitracin (Neosporin Oint) 1 gm TOP ASDIRECTED PRN PRN Reason: abrasions Ondansetron HCl (Zofran) 4 mg IV Q6H PRN PRN Reason: Nausea/Vomiting Pantoprazole Sodium (Protonix) 40 mg PO DAILY [facility] Last Admin: 06/25/20 08:51 Dose: 40 mg Documented by: Polyethylene Glycol (Miralax) 17 gm PO DAILY PRN PRN Reason: Constipation Rosuvastatin Calcium (Crestor) 5 mg PO DAILY [facility] Last Admin: 06/25/20 08:50 Dose: 5 mg Documented by: Saccharomyces Boulardii (Florastor) 250 mg PO DAILY [facility] Last Admin: 06/25/20 08:51 Dose: 250 mg Documented by: Senna/Docusate Sodium (Senna Plus) 1 tab PO BID PRN PRN Reason: Constipation Sertraline HCl (Zoloft) 75 mg PO DAILY [facility] Last Admin: 06/25/20 08:49 Dose: 75 mg Documented by: Sodium Chloride (Saline Flush) 10 ml FLUSH ASDIRECTED PRN PRN Reason: Keep Vein Open Last Admin: 06/21/20 18:11 Dose: 10 ml Documented by: Sodium Chloride (Saline Flush) 10 ml FLUSH ASDIRECTED PRN PRN Reason: Keep Vein Open Vit A/Vit C/Vit E/Selen/Cu/Zn/Lutei (Icaps Mv) 1 tab PO DAILY [facility] Last Admin: 06/25/20 08:48 Dose: 1 tab Documented by: Discontinued Medications Aspirin (Aspirin) 162 mg PO BID [facility] Last Admin: 06/23/20 10:24 Dose: Not Given Documented by: Fluticasone Propionate (Flonase) 0 gm NASBOTH DAILY [facility] Last Admin: 06/22/20 09:59 Dose: 1 spray Documented by: Furosemide (Lasix) 40 mg IVPUSH NOW ONE Stop: 06/21/20 19:09 Last Admin: 06/21/20 19:46 Dose: 40 mg Documented by: Furosemide (Lasix) 40 mg PO DAILY [facility] Furosemide (Lasix) 20 mg IVPUSH ONETIME ONE Stop: 06/22/20 17:23 Last Admin: 06/22/20 17:56 Dose: 20 mg Documented by: Furosemide (Lasix) 20 mg IVPUSH ONETIME ONE Stop: 06/23/20 15:40 Last Admin: 06/23/20 15:48 Dose: 20 mg Documented by: Furosemide (Lasix) 20 mg IVPUSH ONETIME ONE Stop: 06/24/20 15:01 Last Admin: 06/24/20 16:11 Dose: 20 mg Documented by: Ceftriaxone Sodium 2 gm/ (Sodium Chloride) 100 mls @ 200 mls/hr IV ONETIME ONE Stop: 06/21/20 19:51 Last Admin: 06/21/20 19:46 Dose: 200 mls/hr Documented by: Ceftriaxone Sodium 1 gm/ (Sodium Chloride) 100 mls @ 200 mls/hr IV Q24H [facility] Stop: 06/25/20 19:31 Ceftriaxone Sodium 1 gm/ (Sodium Chloride) 100 mls @ 200 mls/hr IV Q24H [facility] Last Admin: 06/23/20 18:41 Dose: 200 mls/hr Documented by: Loratadine (Claritin) 10 mg PO DAILY [facility] Last Admin: 06/22/20 09:51 Dose: 10 mg Documented by: Non-Formulary Medication (Acetaminophen) 1,000 mg PO Q6HR PRN PRN Reason: Pain Non-Formulary Medication (Lutein/Minerals/Vit A,C & E) 1 tab PO DAILY [facility] Non-Formulary Medication (Ubidecarenone [Co Q-10]) 50 mg PO DAILY [facility] Potassium Chloride (Klor-Con M20) 40 meq PO ONETIME ONE Stop: 06/22/20 17:31 Last Admin: 06/22/20 17:29 Dose: 40 meq Documented by: - Exam Quality Assessment: Denies: Supplemental Oxygen General: Reports: Alert, Oriented HEENT: Reports: Pupils Equal, Mucous Membr. Moist/[place] Neck: Reports: Supple Lungs: Reports: Normal Respiratory Effort, Rales Cardiovascular: Reports: Regular Rate, Regular Rhythm GI/Abdominal Exam: Normal Bowel Sounds, Soft, Non-Tender, No Distention Extremities: Normal Inspection, Normal Range of Motion, Non-Tender, No Pedal Edema, Normal Capillary Refill Skin: Reports: Warm, Dry, Intact Psy/Mental Status: Reports: Alert, Normal Affect, Normal Mood
== END 2020-06-25 13:25 | disposition home or self-care (01) | DRG 154 ==
LOC: JD.ED 17:09 → JD.MS 19:23
PROVIDERS: ADMIT Internal Medicine; ATTEND Internal Medicine
DX: N30.01 Acute cystitis with hematuria (principal); H91.93 Unspecified hearing loss, bilateral; I50.33 Acute on chronic diastolic (congestive) heart failure; I13.0 Hypertensive heart and chronic kidney disease with heart failure and stage 1 through stage 4 chronic kidney disease, or unspecified chronic kidney disease; N39.0 Urinary tract infection, site not specified; E78.00 Pure hypercholesterolemia, unspecified; N18.30 Chronic kidney disease, stage 3 unspecified; N18.2 Chronic kidney disease, stage 2 (mild); I50.32 Chronic diastolic (congestive) heart failure; I73.9 Peripheral vascular disease, unspecified; Z95.810 Presence of automatic (implantable) cardiac defibrillator; Z95.1 Presence of aortocoronary bypass graft; H54.7 Unspecified visual loss; H91.90 Unspecified hearing loss, unspecified ear; N19 Unspecified kidney failure; Z88.8 Allergy status to other drugs, medicaments and biological substances; I25.10 Atherosclerotic heart disease of native coronary artery without angina pectoris; K21.9 Gastro-esophageal reflux disease without esophagitis; M19.90 Unspecified osteoarthritis, unspecified site; G56.00 Carpal tunnel syndrome, unspecified upper limb; G51.0 Bell's palsy; F32.9 Major depressive disorder, single episode, unspecified; Z20.822 Contact with and (suspected) exposure to COVID-19; D50.9 Iron deficiency anemia, unspecified; R73.9 Hyperglycemia, unspecified; E88.09 Other disorders of plasma-protein metabolism, not elsewhere classified; E78.5 Hyperlipidemia, unspecified; Z79.82 Long term (current) use of aspirin; Z79.899 Other long term (current) drug therapy; I25.2 Old myocardial infarction; Z95.0 Presence of cardiac pacemaker; Z87.891 Personal history of nicotine dependence; Z97.4 Presence of external hearing-aid; Z98.890 Other specified postprocedural states
CPT/HCPCS: 0240U; 36415; 36600; 71045; 80048; 80053; 81001; 82306; 82728; 82803; 83036; 83605; 83615; 83735; 83880; 84439; 84443; 84484; 85007; 85025; 85027; 85379; 85610; 85730; 86140; 87040; 87086; 87088; 87186; 87641; 93005; 93306; 94761; 97110; 97116; 97162; 99285; 93010; 99223; 99232; 99233; 99239; 99284; A9270-GY; J0696; J1650; J1940; U0002